=== PATIENT | female | born 1955 | race Caucasian/White ===

== ENCOUNTER → 2020-11-15 13:14 | Outpatient (CLI) | payer MEDICARE, SELFPAY ==
[2020-11-15 19:36] LABS: Add Manual Diff / Slide Review NO; Basophils Absolute Auto 100 /uL (0-100); Basophils Percent Auto 1.1 % (0-2); Eosinophils Absolute Auto 0 /uL (0-450); Eosinophils Percent Auto 0.6 % (2-4); Hematocrit 36.5 % (36-46); Hemoglobin 12.5 g/dL (12.0-16.0); Lymphocytes Absolute Auto 1700 /uL (1100-4500); Lymphocytes Percent Auto 23.7 % (25-40); Mean Corpuscular HGB Conc 34.2 % (30-36); Mean Corpuscular Hemoglobin 32.3 PG (26-34); Mean Corpuscular Volume 94.4 fL (80-100); Monocytes Absolute Auto 500 /uL (0-900); Monocytes Percent Auto 6.6 % (3-14); Neutrophils Absolute Auto 5000 /uL (1500-7000); Platelet Count 296 X10^3/uL (150-400); Red Blood Cell Count 3.87 X10^6/uL (4.0-5.2); Red Cell Distribution Width 12.5 % (11.6-14.8); White Blood Cell Count 7.3 X10^3/uL (4.5-11.0)
[2020-11-15 19:43] LABS: Alanine Aminotransferase 23 IU/L (<35); Albumin Globulin Ratio 1.2 (1.0-2.8); Alkaline Phosphatase 60 U/L (38-126); Aspartate Aminotransferase 44 IU/L (14-36); BUN Creatinine Ratio 14.7 (6-22); Bilirubin Total 0.2 mg/dL (0.2-1.3); Blood Urea Nitrogen 10 mg/dL (7-17); Calcium 9.9 mg/dL (8.4-10.2); Carbon Dioxide 33 mmol/L (22-32); Chloride 105 mmol/L (98-107); Cholesterol 164 mg/dL (140-199); Estimated Glomerular Filt Rate > 60.0 mL/min (>60); Globulin 3.3 g/dL (1.7-4.1); Glucose 82 mg/dL (80-110); HDL Cholesterol 60 mg/dL (40-60); HEMOLYSIS < 15 (0-50); LDL Cholesterol Calculated 91 mg/dL (<100); Potassium 4.8 mmol/L (3.4-5.1); Sodium 140 mmol/L (137-145); Total Protein 7.3 g/dL (6.3-8.2); Triglycerides 63 mg/dL (35-150)
[2020-11-19 11:21] LABS: HCV log 10 6.887 (.)
== END ==
PROVIDERS: PCP Family Medicine; Visit Provider Family Medicine
DX: B19.20 Unspecified viral hepatitis C without hepatic coma (principal); N90.89 Other specified noninflammatory disorders of vulva and perineum; E78.5 Hyperlipidemia, unspecified; Z86.79 Personal history of other diseases of the circulatory system
CPT/HCPCS: 80053; 80061; 85025; 87522

== ENCOUNTER → 2020-11-28 10:58 | Outpatient (CLI) | payer MEDICARE, SELFPAY ==
--- NOTE | 2020-11-28 | DI.MRI.S_ITS ---
PROCEDURE: MR LUMBAR SPINE WO CON INDICATIONS: Spinal stenosis, lumbar region with neurogenic cla TECHNIQUE: Noncontrast sagittal T1 spin echo and T2 fast echo, sagittal STIR, axial T1 and T2 fast spin echo through the lumbar spine. In cases with scoliosis, additional coronal T2 fast spin echo may be performed. COMPARISON: None. FINDINGS: Image quality: Excellent. Alignment and Curvature: No plain films are available for comparison, for numbering purposes. Thus, for the purposes of this examination, 5 lumbar type vertebral bodies will be presumed, as denoted on the montage panel. This should be confirmed and correlated with plain films, prior to any lumbar spinal intervention. There is mild, grade 1 retrolisthesis of T12 on L1, L1 on L2, L2 on L3, and L3 on L4. Bone Marrow: Marrow is of normal overall signal. No acute vertebral body compression fractures. Mild reactive signal within the endplates adjacent to the T12-L1, L1-L2, L2-L3, L3-L4, and L4-L5 intervertebral discs. Spinal Cord: Conus medullaris terminates at the mid L2 level. Visualized cord demonstrates normal signal and size. Paraspinous Soft Tissues: No paravertebral masses. T12-L1: Moderate disc height loss and desiccation. Mild diffuse disc bulge with superimposed small central disc extrusion which extends superiorly within the anterior epidural space. Mild facet and ligamentum flavum hypertrophy. Mild epidural lipomatosis. Mild canal stenosis. Mild bilateral foraminal stenosis. L1-L2: Moderate disc height loss and desiccation. Mild diffuse disc bulge. Mild facet and ligamentum flavum hypertrophy. Mild epidural lipomatosis. Mild canal stenosis. Moderate left greater than right subarticular foraminal stenosis. L2-L3: Moderate disc height loss and desiccation. Mild diffuse disc bulge. Mild facet and ligamentum flavum hypertrophy. Mild epidural lipomatosis. Mild canal stenosis. Moderate subarticular foraminal stenosis bilaterally. L3-L4: Mild disc height loss. Moderate disc desiccation. Mild diffuse disc bulge. Mild facet and ligamentum flavum hypertrophy. Mild epidural lipomatosis. Mild canal stenosis. Moderate subarticular foraminal stenosis bilaterally. L4-L5: Moderate disc height loss and desiccation. Mild diffuse disc bulge with small superimposed broad-based right posterolateral protrusion. Mild facet and ligamentum flavum hypertrophy. Mild epidural lipomatosis. Mild canal stenosis. Severe right and moderate left foraminal stenosis. Right L4 nerve root compression. L5-S1: Mild diffuse disc bulge. Mild facet hypertrophy bilaterally. No significant canal stenosis. Moderate left greater than right subarticular foraminal stenosis. IMPRESSION: 1. Multilevel degenerative disc and facet disease, as well as ligamentum flavum hypertrophy and epidural lipomatosis. 2. Mild multilevel canal stenosis. 3. Multilevel foraminal stenoses, worst at L4-L5 where there is associated intraforaminal nerve root compression. Recommend correlation with clinical symptoms to ascertain relevance of this finding. Dictated by: Rachel Canseco M.D. on 11/28/2020 at 14:24 Approved by: Rachel Canseco M.D. on 11/28/2020 at 14:28
== END ==
LOC: MRI 10:59
PROVIDERS: PCP Family Medicine; Referring Provider Family Medicine; Visit Provider Family Medicine
DX: M48.062 Spinal stenosis, lumbar region with neurogenic claudication (principal); M48.07 Spinal stenosis, lumbosacral region; M51.36 Other intervertebral disc degeneration, lumbar region; M51.37 Other intervertebral disc degeneration, lumbosacral region
CPT/HCPCS: 72148

== ENCOUNTER → 2021-09-18 11:19 | Outpatient (CLI) | payer MEDICARE, SELFPAY ==
[2021-09-18 20:08] LABS: Add Manual Diff / Slide Review NO; Basophils Absolute Auto 100 /uL (0-100); Basophils Percent Auto 0.9 % (0-2); Eosinophils Absolute Auto 100 /uL (0-450); Eosinophils Percent Auto 0.8 % (2-4); Hematocrit 36.9 % (36-46); Hemoglobin 12.4 g/dL (12.0-16.0); Lymphocytes Absolute Auto 1800 /uL (1100-4500); Lymphocytes Percent Auto 19.5 % (25-40); Mean Corpuscular HGB Conc 33.6 % (30-36); Mean Corpuscular Hemoglobin 30.5 PG (26-34); Mean Corpuscular Volume 90.7 fL (80-100); Monocytes Absolute Auto 800 /uL (0-900); Monocytes Percent Auto 8.5 % (3-14); Neutrophils Absolute Auto 6400 /uL (1500-7000); Neutrophils Percent Auto 70.3 % (50-75); Platelet Count 298 X10^3/uL (150-400); Red Blood Cell Count 4.07 X10^6/uL (4.0-5.2); Red Cell Distribution Width 13.1 % (11.6-14.8); White Blood Cell Count 9.1 X10^3/uL (4.5-11.0)
[2021-09-18 20:13] LABS: HEMOLYSIS < 15 (0-50); Iron 154 ug/dL (37-170)
[2021-09-18 20:25] LABS: Percent Iron Saturation 49 % (15-50); Total Iron Binding Capacity 317 ug/dL (265-497); Transferrin 260 mg/dL (206-381)
[2021-09-18 20:29] LABS: Alanine Aminotransferase 11 IU/L (<35); Albumin 4.4 g/dL (3.5-5.0); Albumin Globulin Ratio 1.3 (1.0-2.8); Alkaline Phosphatase 64 U/L (38-126); Aspartate Aminotransferase 26 IU/L (14-36); BUN Creatinine Ratio 16.1 (6-22); Bilirubin Total 0.8 mg/dL (0.2-1.3); Blood Urea Nitrogen 10 mg/dL (7-17); Calcium 9.7 mg/dL (8.4-10.2); Carbon Dioxide 29 mmol/L (22-32); Chloride 104 mmol/L (98-107); Estimated Glomerular Filt Rate > 60.0 mL/min (>60); Globulin 3.3 g/dL (1.7-4.1); Glucose 85 mg/dL (80-110); HEMOLYSIS < 15 (0-50); Sodium 138 mmol/L (137-145); Total Protein 7.7 g/dL (6.3-8.2)
[2021-09-18 20:57] LABS: Ferritin 46 ng/mL (11-264)
== END ==
PROVIDERS: Physician Assistant
DX: R11.0 Nausea (principal); Z86.2 Personal history of diseases of the blood and blood-forming organs and certain disorders involving the immune mechanism; B18.2 Chronic viral hepatitis C
CPT/HCPCS: 80053; 82728; 83540; 83550; 85025

== ENCOUNTER → 2021-11-21 10:59 | Outpatient (CLI) | payer MEDICARE, MEDICAID, SELFPAY ==
[2021-11-21 18:31] LABS: Add Manual Diff / Slide Review NO; Basophils Absolute Auto 100 /uL (0-100); Eosinophils Absolute Auto 100 /uL (0-450); Eosinophils Percent Auto 0.9 % (2-4); Hematocrit 37.6 % (36-46); Lymphocytes Absolute Auto 1600 /uL (1100-4500); Lymphocytes Percent Auto 20.1 % (25-40); Mean Corpuscular HGB Conc 34.5 % (30-36); Mean Corpuscular Hemoglobin 31.9 PG (26-34); Mean Corpuscular Volume 92.2 fL (80-100); Monocytes Absolute Auto 600 /uL (0-900); Monocytes Percent Auto 7.8 % (3-14); Neutrophils Absolute Auto 5400 /uL (1500-7000); Neutrophils Percent Auto 70.2 % (50-75); Platelet Count 330 X10^3/uL (150-400); Red Blood Cell Count 4.07 X10^6/uL (4.0-5.2); Red Cell Distribution Width 13.6 % (11.6-14.8); White Blood Cell Count 7.7 X10^3/uL (4.5-11.0)
[2021-11-21 18:38] LABS: Albumin 4.2 g/dL (3.5-5.0); Albumin Globulin Ratio 1.4 (1.0-2.8); Alkaline Phosphatase 68 U/L (38-126); Aspartate Aminotransferase 29 IU/L (14-36); BUN Creatinine Ratio 18.3 (6-22); Bilirubin Total 0.3 mg/dL (0.2-1.3); Blood Urea Nitrogen 11 mg/dL (7-17); Calcium 9.3 mg/dL (8.4-10.2); Carbon Dioxide 32 mmol/L (22-32); Chloride 104 mmol/L (98-107); Estimated Glomerular Filt Rate > 60 mL/min (>60); Globulin 2.9 g/dL (1.7-4.1); Glucose 106 mg/dL (80-110); HEMOLYSIS < 15 (0-50); Potassium 3.8 mmol/L (3.4-5.1); Sodium 141 mmol/L (137-145); Total Protein 7.1 g/dL (6.3-8.2)
[2021-11-21 18:53] LABS: Alanine Aminotransferase 20 IU/L (<35)
== END ==
PROVIDERS: PCP Family Medicine; Visit Provider Family Medicine
DX: N90.89 Other specified noninflammatory disorders of vulva and perineum (principal)
CPT/HCPCS: 80053; 85025

== ENCOUNTER → 2021-12-26 12:06 | Outpatient (CLI) | payer MEDICARE, MEDICAID, SELFPAY ==
[2021-12-30 11:26] LABS: Hep C Virus Ab w/Reflex Quant NEGATIVE s/c (NEGATIVE)
== END ==
PROVIDERS: PCP Family Medicine; Visit Provider Family Medicine
DX: Z11.59 Encounter for screening for other viral diseases (principal); B18.2 Chronic viral hepatitis C
CPT/HCPCS: 86803; 87522

== ENCOUNTER 2022-05-11 10:01 | Inpatient (IN) | payer MEDICARE, MEDICAID, SELFPAY ==
[2022-05-05 12:55] VITALS: BMI 19.3
[2022-05-11] VITALS (14 sets, daily range): BP systolic 96–149; BP diastolic 53–88; PULSE 58–77; RESP 9–19; TEMP 36.4–37.8; O2SAT 92–100; BMI 19.3
[2022-05-11 12:41] LABS: COVID19 -Nasal RAPID Negative (Negative)
--- NOTE | 2022-05-11 12:41 | PM.PREOP ---
Pre-operative Note COVID-19 COVID-19 status: Negative Result date/Date tested (Pos, Neg/Pending): 05/10/22 Criteria for continued procedure: Expected advancement of disease process, Possibility delay results in more complex future surgery or treatment, Increased loss of function, Continuing or worsening of significant or severe pain, Deterioration of the patient's condition or overall health and Delay expected to result in less-positive ultimate med/surg outcome Interval Note History & Physical reviewed/Exam performed by Physician: Yes Changes to H&P: No
[2022-05-11] MEDS: LACTATED RINGERS 1,000 ML 42 ML IV (12:47)
[2022-05-11] MEDS: CEFAZOLIN 2 GM/100 ML PREMIX 100 ML IV ×2 (13:46→21:30)
[2022-05-11] MEDS: BUPIVACAINE LIPOSOME 266 MG/20 ML VIAL INJ (13:49)
[2022-05-11] MEDS: BUPIVACAINE 0.5% (PF) 30 ML, EPINEPHrine 0.15 MG INJ (13:57)
--- NOTE | 2022-05-11 14:00 | SUR.OPER ---
Prone on spine table, head in foam head support, padded chest and pelvic supports, gel pad at knees, lower legs supported by pillows; nipples, genitalia and toes free of pressure, arms secured on foam padded arm boards at <90 degrees abduction. Tape over blanket at thigh secured to table.
[2022-05-11] MEDS: ACETAMINOPHEN IV 1,000 MG/100 ML VIAL 400 MG IV (14:32)
--- NOTE | 2022-05-11 15:34 | PM.OP.1 ---
Operative Date/Time/Diagnoses Date of procedure: 05/11/22 Time of procedure: 13:00 Pre-op diagnosis: 1. L4-5 spondylolisthesis 2. L4-5 spinal stenosis Post-op diagnosis: same Procedure & Clinicians Procedure: 1. L4-5 Postero-lateral and posterior interbody fusion 2. L4-5 interbody cage placement. 3. L4-5 decompressive laminectomy with bilateral facetecomies 4. L4-5 Posterior non-segmental instrumentation 5. [place] of bone marrow from iliac crest 6. Utilization of microsurgical technique and operating microscope Same procedure as scheduled: Yes Indications: Patient has been having chronic back pain and worsening lumbar radiculopathy. Patient failed multiple conservative management with worsening pain weakness and numbness in her lower extremity. Patient has been having difficulty performing activity of daily living. After discussing risks benefits of treatment options, patient elected proceed with surgery. Surgeon: Chris Marcos Traffic Court Referee: Monica Sexton Click Yes if Unassisted: No Anesthesia Type: General Operative Notes Closure Type: primary Specimen(s): none sent Prosthetic devices, grafts, tissues, transplants, or devices: Globus revolve screws, Rise cage Estimated Blood Loss (mL): 50 Blood products transfused: none Procedure in detail: Patient was seen in the preoperative area. Risks and benefits of the surgery was discussed with the patient. Informed consent was obtained from the patient and placed in the chart. Surgical site was marked. Patient was taken to the operative room. General anesthesia was administered. Prophylactic antibiotic was given to the patient less than 30 min before the incision was made. Patient was placed into a prone position on the Sukhjinder table. Patient's back was then prepped and draped in the sterile fashion. Time-out was performed at this time. Using AP and lateral C-arm imaging the interval between L4-5 was identified and marked on patient's back. A 2 inch incision 2 in from midline was made on the right side first. The fascia was incised in line with skin incision. Globus MARS retractors was placed inside the incision and docked onto the L4 lamina. Using microsurgical technique and operating microscope, a L4 laminectomy and L4-5 facetectomy was performed using a Kerrison rongeur. The disc space at L4-5 was identified. And a total diskectomy was performed at L4-5 level. The endplates were decorticated using a rasp and shaver. The total diskectomy and decortication was performed at L4-5 level in order to to accomplish a L4-5 fusion. The local bone from the laminectomy and facetectomy was saved for local bone grafting. After the total diskectomy and decortication was completed, Trifecta bone graft material was combined with local bone that was harvested earlier. At this time, a separate skin is incision was made over the iliac crest. A Jamshidi needle was inserted into the iliac crest through a separate skin incision. 5 cc of bone marrow aspiration was obtained through the separate skin incision using a Jamshidi needle from the iliac crest. The bone marrow aspiration was combined with local bone and the Trifecta bone grafting material. The bone grafting material was placed into the L4-5 interbody space along with a expandable cage. The cage was expanded to its maximum height using the torque limiting screwdriver. At this time a mirror image incision was made on the left side. The fascia was incised in line with the skin incision. Globus MARS retractor was inserted and docked onto the L4-5 posterolateral gutter. Using the power drill, posterior-lateral decortication was performed at L4-5 level until bleeding cortical bone was identified. The remaining bone grafting material was placed into the L4-5 posterior lateral gutter he order to accomplish posterolateral fusion at the L4-5 level. Using the double C-arm technique, pedicle screws were placed into the L4-5 pedicles bilaterally. This was done by placing the Jamshidi needle into the pedicles, then placing the guidewires over the Jamshidi needle, and finally placing the cannulated screws over the guidewires bilaterally. After the pedicle screws were placed, 2 titanium rods was locked into the heads of the pedicle screws using locking caps and torque limiting screwdriver. After all the hardware was placed, and confirmed with AP and lateral C-arm imaging, the wound was then irrigated with sterile normal saline and packed with Ray-Minnie gauze for 3 min to accomplish hemostasis. After the gauze was removed the deep fascia was closed with #1 Vicryl suture. The subcutaneous layer was closed with 2-0 Vicryl. The skin was closed with skin malka. Patient tolerated the procedure well. There were no complications. Complications: none Post-operative Condition: stable Disposition: PACU Plan for aftercare: Admit to inpatient hospital
--- NOTE | 2022-05-11 15:37 | DI.RAD.S_ITS ---
PROCEDURE: XR LUMBAR SPINE 2-3V INDICATIONS: L4-5 TLIF TECHNIQUE: 3 views of the lumbar spine were acquired. COMPARISON: None. FINDINGS: Bones: AP and lateral views demonstrate pedicular screw and abundio fixation with interval discectomy and interbody fusion. IMPRESSION: Fluoroscopic views demonstrate intraoperative changes of L4-5 discectomy and fusion. Dictated by: Julien Chen M.D. on 05/11/2022 at 16:36 Approved by: Julien Chen M.D. on 05/11/2022 at 16:37
[2022-05-11] MEDS: fentaNYL 100 MCG/2 ML INJ IV ×2 (15:51→16:08)
[2022-05-11] MEDS: OXYCODONE IR 5 MG TABLET PO (16:11)
[2022-05-11] MEDS: HYDROMORPHONE 0.5 MG INJ IV ×2 (17:09→23:43)
[2022-05-11] MEDS: SODIUM CHLORIDE 0.9% 1,000 ML 100 ML IV (17:44)
[2022-05-11] MEDS: SENNOSIDES 8.6 MG TABLET 17.2 MG PO (20:03)
[2022-05-11] MEDS: OXYCODONE IR 10 MG TABLET PO ×2 (20:03→23:01)
[2022-05-11] MEDS: hydrOXYzine pamoate 25 MG CAPSULE PO (20:03)
[2022-05-11] MEDS: atenoloL 25 MG TABLET PO (20:04)
[2022-05-11] MEDS: DOCUSATE 100 MG CAPSULE PO (20:04)
[2022-05-11] MEDS: ACETAMINOPHEN 325 MG TABLET 650 MG PO (20:04)
[2022-05-12] VITALS: BP 143/68; PULSE 53; RESP 19; TEMP 37.6; O2SAT 93
[2022-05-12] MEDS: OXYCODONE IR 10 MG TABLET PO ×7 (03:20→23:41)
[2022-05-12] MEDS: hydrOXYzine pamoate 25 MG CAPSULE PO (03:20)
[2022-05-12 04:00] VITALS: BP 116/54; PULSE 52; RESP 19; TEMP 36.6; O2SAT 98
[2022-05-12] MEDS: CEFAZOLIN 2 GM/100 ML PREMIX 100 ML IV (06:11)
--- NOTE | 2022-05-12 07:42 | PM.PNPO.1 ---
Subjective Subjective Date Patient Seen: 05/12/22 Time Patient Seen: 07:42 Interval history: Patient is complaining of stla-mw-murhhmms low back pain this morning. She denies any numbness or tingling down her legs. She states she is not had a bowel movement yet and nor is she passing gas yet. She is not worked with physical therapy. Her plan on discharge is going to SNF. Exam Vital Signs (past 8 hours): - 05/12/22 00:00 05/12/22 04:00 Temperature 99.6 F 97.8 F Pulse Rate 53 L 52 L Respiratory Rate 19 19 Blood Pressure 143/68 H 116/54 L Pulse Oximetry 93 98 Oxygen Delivery Method Nasal Cannula Oxygen Flow Rate 0 Narrative Exam Narrative: Pleasant 66-year-old female, resting comfortably in bed, no acute distress. Dressing is clean, dry, intact. There is no surrounding erythema, induration, ecchymosis. Bilateral lower extremity: Motor functions are grossly intact, sensation is grossly intact to light touch, calves are soft and nontender to palpation. Objective Labs Labs: Laboratory Results - last 24 hr 05/11/22 12:08 SARS-CoV-2 (PCR) Negative [facility] Medical History Abnormal Pap smear of cervix Allergies Ankle pain Anxiety Chronic back pain Chronic low back pain Diverticular disease Fever (~1974) Fibromyalgia Foot pain Headache Hepatitis C History of atrial fibrillation (~2018) History of syphilis (~1975) History of urinary incontinence Hx of ectopic Hyperlipidemia Hypertension Measles (~1957) Neck pain Raynaud's phenomenon Recurrent sinusitis Rheumatoid arthritis Right foot drop Shoulder pain Spinal stenosis Wears glasses Surgical History Anesthesia History of cervical cerclage History of colonoscopy with polypectomy History of surgery (~2019) Hx of section Hx of tubal ligation Family History Mother History of heart disease Social History household members: none Smoking Status: Current every day smoker alcohol intake: current Assessment & Plan Post-op Postoperative Procedures: Procedures Operation Date: 05/11/22 13:45 Actual Procedure Side Surgeon p L4-5 TLIF Chris Marcos MD Postoperative day: 1 Postoperative status narrative: -stable status post L4-5 TLIF Postoperative plan narrative: -mobilize with PT/OT. No bending, lifting, twisting x6 weeks. Weightbearing as tolerated with front wheel walker or cane -continue with multimodal pain management -DC to SNF once a bed is available Quality VTE Deep Vein Thrombosis/Pulmonary Embolism Present on Admission: No
[2022-05-12 07:49] VITALS: BP 120/53; PULSE 56; RESP 17; TEMP 36.8; O2SAT 99
--- NOTE | 2022-05-12 08:43 | CM.DANOTE ---
Addendum entered by Cornelia Truong R.N. 05/12/22 13:26: Selene called back from [facility] and they are running insurance authorization. [facility]. DCP to continue to follow. ADJ Addendum entered by Cornelia Truong R.N. 05/12/22 12:38: PT is recommending SNF. [facility]erral [facility] as pt wants to stay in [place]. Discussion was had with pt that if [facility] unable to accept, would have to start looking elsewhere. Pt in agreement. DCP to continue to follow. Cornelia Truong RN/STANLEY Original Note: DCP Assessment: Payor confirmed: [facility] MCR & Medicaid PCP confirmed: Edgar Ruiz MD Pt is a 66 y.o. F who presented to the hospital for a scheduled TLIF surgery with Dr. Marcos. Pt brought up to AC unit for further management and evaluation of procedure. DCP met with pt this morning to discuss discharge needs. Pt sitting up in bed eating breakfast. DCP introduced herself and role. Pt states that she lives alone in a single story house in [place]. Pt states that she is independent at baseline and still drives POV. Pt states that she has a medicare biller through her insurance who is assisting her with getting set up with rehab. DCP to contact this medicare biller. Pt also states that she has a son who lives nearby and will be here later this morning to visit with her. Pt provided DCP with contact information for medicare biller. Pt still needs to work with PT for evaluation. White board updated and instructed to call. Pt thankful for discussion. P: DCP left message for medicare biller. Pt to work with PT today. DCP to follow case to determine if patient is SNF eligible. Cornelia Truong RN/STANLEY Discharge Planning/Care Management CM Discharge Assessment Start: 05/12/22 08:24 Freq: Status: Active Protocol: Document 05/12/22 08:39 ROCIO (Rec: 05/12/22 08:43 ROCIO [id number]) Discharge Planning Assessment Assigned Yoke Setter Corneila Truong RN/STANLEY Advance Directives? No History Provided By Patient Prior Living Arrangements House Household Members none Type of transporation used prior to Drives own vehicle admit Independent with ADL's Yes Is patient alert and oriented? Yes Caregiver for Another No Patient/Family Preference [facility] Facility Discharge Plan Home Transportation Arrangement Son MARYANNE. R/O SNF Referrals Initiated [facility] Additional Comment Maybe SNF. Per pt, her insurance medicare biller is setting up rehab services for her. Whiteboard Updated in Patient Room with Yes name and ext. # of Yoke Setter Comment Instructed to call Review Status In Process Please Provide Date Initial DC 05/12/22 Assessment Was Performed Next Review Type Continued Stay Review Pre-Anesthesia Assessment Start: 05/04/22 08:16 Freq: Status: Complete Protocol: Document 05/05/22 12:55 CAB (Rec: 05/04/22 09:51 CAB [id number]) Pre-Anesthesia Assessment PAC Comment Pt would like a nicotine patch Pt reports thumbnail -sized boil on her left buttocks, has been present approximately a month. Advised pt to update surgeon's office Preferred Name Jose A Patient Information Reviewed Via Phone Assessment Assessment Completed With Patient Diagnostic Results EKG Comment Outside ECG done, not here, no labs, COVID screen @ 05/11 Primary Care Provider Edgar Ruiz Seen Specialist in Last 12 Months Yes Specialist Seen Orthopedist Primary Language Tongan Bailer Operators Supervisor Required No Height 167.64 cm Weight 54.431 kg Body Mass Index (BMI) 19.3 Hearing Ability Normal Visual Assist Glasses Dentition Type Full- Upper Barriers to Learning None Hx Anesthesia Reactions Yes: Pt states some type of reaction during a surgery in her 20's but does Additional comment remeber what happened. Hx Family Anesthesia Reaction No Hx Malignant Hyperthermia No Hx Blood Transfusions Yes: r/t miscarriage Hx Blood Transfusion Reaction No Anesthesia Review Requested No Head Men'S Golf Coach Yes: Pt lives on [place], needs assistance with resources alcohol intake current alcohol intake frequency 0-2 drinks per day Smoking Status Current every day smoker Tobacco type cigarettes,e-cigarettes Smoking packs per day 10 Substance Use Type marijuana Comment Pt advised not to smoke marijuana 24 hours prior to surgery Pain Present Pain Reported Musculoskeletal Symptoms Abnormal Gait,Back Pain, Difficulty Walking,Limited Range of Motion,Muscle Weakness,Radiating Pain into Limb History of Falling (Recent or History of Yes ) Patient is completely paralyzed or No completely immobile Mental Status Oriented to own ability Is patient on oxygen? No Does patient have STEWART/SOB Yes: r/t smoking Hx Sleep Apnea No Currently Taking a Beta Treva Yes: Atenolol Can You Climb a Flight of Stairs Without No SOB Hx Chest Pain No Hx SOB Yes: Related to smoking Hx Syncope or Dizziness Yes: r/t medication Anti-Coagulant Therapy Yes: ASA 1000mg qd-bid for pain and Afib-pt will discuss w/Dr. Kaur Has a [facility] Yes: Last visit 01/29/[address] Kaur Cardiac Testing Yes: Nuc stress, Echo done @ [facility] Hx Pacemaker/ICD No Pacemaker Rep Required? No Cardiac Clearance Received Yes Comment Cardiac records scanned Diet Type At Home Regular dysphagia No Urinary Catheter Present No Hx Urinary Self Catheterization No Diabetes No Patient No Lactating No Hx Drug Resistant Organism No Presence of External or Internal Medical No Devices Have you had any close contact with No someone diagnosed with COVID-19? Received a COVID vaccine? Yes Received all doses? Yes Marital Status Lives With none Prior Living Arrangements House Number of Floors (Floors) One Floor Support System Child/Children Does the Patient Have Assistance After Yes: Son will stay w/pt Surgery initially, but she is unsure after that Patient Discharge Plan Description Return Home Comment Lives on [facility] Additional comment Pt advised 1-2 day length of stay per surgeon Feels Safe in Current Environment Yes Been Physically Hurt or Threatened By a No Person in Current Environment Do you have thoughts of harming yourself None or others? Are you currently considering suicide? No Do you have a plan to hurt yourself or No Plan others? Do You Have Any Spiritual Beliefs That No May Affect Your HC Choices? Do You Have Any Cultural Practices That No May Affect Your HC Choices? Who Can We Speak to About Patient's Care Family, friends Identifying Code for Release of Patient Declines to issue Information Health Care Proxy/Next of Kin Juan Knox (son) Health Care Proxy or his : Alesha: [phone] Emergency Contact Name Juan Knox (son) Emergency Contact or his : Alesha: [phone] Advance Directives? No Power of Material Control Analyst No PAC Instructions Durable medical equipment, Medications to take/avoid, Nasal antibiotic,No ETOH/ petroleum product on skin DOS, NPO,Pre-surgical wash,Sensory aids,Sturdy shoes/comfortable clothes,Do not bring valuables and remove jewelry
[2022-05-12] MEDS: DOCUSATE 100 MG CAPSULE PO ×2 (09:08→20:08)
--- NOTE | 2022-05-12 10:50 | OT.IP.EVAL ---
Current Diagnoses Foot drop, right foot (05/11/22) Spondylolisthesis, lumbar region (05/11/22) Spinal stenosis, lumbar region with neurogenic claudication (05/11/22) Surgery Performed Operation Date: 05/11/22 13:45 Actual Procedures p L4-5 TLIF - Chris Marcos MD Past Medical History (Last Reviewed 05/12/22 @ 07:43 by Cici Khanna PA-C) Abnormal Pap smear of cervix Allergies Ankle pain Anxiety Chronic back pain Chronic low back pain Diverticular disease Fever (~1974) Fibromyalgia Foot pain Headache Hepatitis C History of atrial fibrillation (~2018) History of syphilis (~1975) History of urinary incontinence Hx of ectopic Hyperlipidemia Hypertension Measles (~1957) Neck pain Raynaud's phenomenon Recurrent sinusitis Rheumatoid arthritis Right foot drop Shoulder pain Spinal stenosis Wears glasses Surgical History (Last Reviewed 05/12/22 @ 07:43 by Cici Khanna PA-C) Anesthesia History of cervical cerclage History of colonoscopy with polypectomy History of surgery (~2019) Hx of section Hx of tubal ligation Occupational Therapy Inpatient Evaluation/Re-Eval M1 PT/OT-IP Prior Functional Status Start: 05/12/22 12:18 Freq: NEEDED Status: Active Protocol: Document 05/12/22 11:01 AB (Rec: 05/12/22 12:35 AB [id number]) Medical Review Prior Functional Status Medical History Reviewed Yes Communication able to make needs known Mobility and Gait pt stated that she is independent with all mobilities and ambulation without AD Social History Household Members none Living Arrangements House Number of Floors (Floors) One Floor Number of Stairs To Enter/Railing? 3 platform steps to enter has an outdoor shower has an outhouse Home Environment Walk in Shower Home Equipment Front Wheel Walker,Straight Cane,Bedside Commode,Hand Held Shower,Stitcher Around Additional Social History Comment son lives close by and can check on pt daily if needed M2 OT-IP Current Condition Start: 05/12/22 11:41 Freq: Status: Active Protocol: Document 05/12/22 11:41 [facility] (Rec: 05/12/22 12:30 [facility] [id number]) Occupational Therapy Current Condition Current Condition Evaluation Date 05/12/22 Treatment Diagnosis S/p L4-5 TLIF Diagnosis Onset Date 05/11/22 Post Operative Precautions Lumbar Precautions Log Roll,No Twisting,Limit Bending,Lifting Restriction of 10 lbs,Gait Belt above Incisional Area M3 OT- IP Subjective and Pain Start: 05/12/22 11:41 Freq: Status: Active Protocol: Document 05/12/22 11:41 [facility] (Rec: 05/12/22 12:30 [facility] [id number]) OT- Subjective Occupational Therapy Visit Type Type Initial Evaluation Visit Start Time 09:05 Visit Stop Time 10:50 Total Visit Minutes 68 Notes Pt seen for split session 905 [id number] and [id number]. Pt's son present for the end of the session and caregiver training was initiated. Occupational Therapy Visit Comments Patient Comments Pt coming out of the bathroom when OT came to work with the pt a second time. Patient/Caregiver Goals Pt wanting to go to skilled rehab. OT Pain Assessment Pain When Pain Assessed During Mobility Pain Present Pain Present Pain Reported Location lower back Intensity 6 Scale Used Numeric (0 - 10) M4 OT- IP ADL's Start: 05/12/22 11:41 Freq: Status: Active Protocol: Document 05/12/22 11:41 [facility] (Rec: 05/12/22 12:30 [facility] [id number]) OT [id number] Comments OT Self-Feeding Comments Not at meal time. OT ADL-Grooming General Evaluation Grooming Ability Standby Assistance Areas Needing Assistance Retrieving/Set-up of Grooming Items OT ADL-Oral Care General Eval Oral Care Ability Standby Assistance Areas of Assistance Retrieving/Set-Up of Items Comments Oral Care Comments VC to spit into the cup versus hinge at her hips in order to best follow her back precautions. OT ADL-Dressing General Eval Lower Body Dressing Ability Standby Assistance Comments OT Dressing Comments Pt able to comfortably cross her legs in order to kiara/doff her socks. OT ADL-Toileting General Evaluation Toileting Ability Independent Comments OT Toileting Comments Per nursing aid, pt walked into the bathroom on her own and was just walking out when OT came to see her. OT ADL-Bathing Comments OT Bathing Comments Not performed. Best for pt to have assist at home due to her shower is outside and also would benefit from a shower chair and long handled brush. M5 OT- IP IADL's Start: 05/12/22 11:41 Freq: Status: Active Protocol: Document 05/12/22 11:41 [facility] (Rec: 05/12/22 12:30 [facility] [id number]) OT-Instrumental Activities of Daily Living Deficits IADL Deficits Identified Deficits Home Safety Awareness Awareness of Need for Assistance at Home Good Awareness Home Safety Comments Pt not thinking well and a bit groggy from pain medications and needing constant cues for safety. At this time would be best for pt to have 24/7 available assist but not 1:1 assist and for her son to stay with her initially. Medication Management Medication Management Comments At this time pt is a bit groggy and would benefit form at least supervision with all her needs. Money Management Money Management Comments At this time pt is a bit groggy and would benefit form at least supervision with all her needs. Meal Preparation Meal Preparation Comments At this time pt is a bit groggy and would benefit form at least supervision with all her needs. Casing Tier Casing Tier Comments At this time pt is a bit groggy and would benefit form at least supervision with all her needs. M6 OT- IP Functional Cognition Start: 05/12/22 11:41 Freq: Status: Active Protocol: Document 05/12/22 11:41 [facility] (Rec: 05/12/22 12:30 [facility] [id number]) Cognitive Factors Limiting Selfcare Function Cognitive Ability Level of Alertness Drowsy Patient Orientation Name,Place,Situation Attention Span Ability Capable of Focused Attention, Capable of Sustained Attention Ability to Follow Commands Able to Follow One Step Commands with Increased Time, Able to Follow One Step Commands with Repetition Safety Awareness Decreased Ability to Apply Precautions,Underestimates Need for Assistance Cognitive Comments Cognitive Assessment Comments Pt a bit groggy and needing constant vc for safety at this time. OT- Vision and Hearing OT- Hearing Assessment OT- Hearing Assessment WFL OT- Vision Assessment Visual Acuity Glasses All The Time M7 OT- IP Mobility and Balance Start: 05/12/22 11:41 Freq: Status: Active Protocol: Document 05/12/22 11:41 [facility] (Rec: 05/12/22 12:30 [facility] [id number]) OT- Bed Mobility Assessment Rolling Type of Rolling Roll to Left Level of Assistance Contact Guard Assistance Supine to Sit Supine to Sit Assist Standby Assistance Sit to Supine Sit to Supine Assist Contact Guard Assistance OT-Transfer Assessment Sit to and From Stand Sit to and from Stand Standby Assistance Transfers Transfer Ability Standby Assistance Technique Transfer Destination Bed,Chair,Toilet Transfer Technique Stand Step Pivot Devices Transfer Assistive Devices Gait Belt,Front Wheeled Walker ,4 Wheeled Walker Comments Mobility Comments Pt much more steady with the FWW and tried the 4ww but too unsteady at this time. Pt's son able to assist while up walking. Pt's BP supine 123/54, sitting 107/51, and standing 92/52 and pt feeling whoozy. Pt's nurse notified. OT- Balance Assessment Sitting Balance and Reactions Static Sitting Balance Ability Normal Dynamic Sitting Balance Ability Good Standing Balance and Reactions Static Standing Balance Ability Fair Dynamic Standing Balance Ability Fair M8 OT- IP Objective Assessments Start: 05/12/22 11:41 Freq: Status: Active Protocol: Document 05/12/22 11:41 [facility] (Rec: 05/12/22 12:30 [facility] [id number]) OT-Muscle Tone Assessment Muscle Tone WNL Yes M9 OT- IP Assessment and Plan Start: 05/12/22 11:41 Freq: Status: Active Protocol: Document 05/12/22 11:41 [facility] (Rec: 05/12/22 12:30 [facility] [id number]) OT Summary Assessment and Plan Potential Rehabilitation Potential Good Analytic Complexity at Evaluation Low Summary OT Impairments Pain,Balance,Functional Mobility,Dressing,Bathing, Shower Transfers Progress Towards Goals Progressing Toward Goals,Slow Progress due to Pain Assessment Summary Pt low complexity and main barriers are her dynamic balance, a bit groggy from pain medications and needing cues to follow her back precautions at this time. Pt will benefit from her son to assist her initially and home health , however may need outpt services as she lives on [facility]. Pt has already gotten a BSC for home use and would benefit from a shower chair. Pt 's son to stay with her initially. Ideally pt would benefit from a short skilled rehab as currently her home environment is not safe for her to be on her own. Pt has 60-100ft to her outhouse on uneven terrain and outdoor shower. Given a short rehab stay pt would benefit from continued practice with back precautions and become more independent. As having home health and outpt services is probably unrealistic as pt has to go by boat/ferry [place] get anywhere. Goals Grooming Goal Independent Dressing Goal Independent Toileting Goal Independent Bathing Goal Standby Assistance Toilet Transfer Goal Independent Shower Transfer Goal Contact Guard Assistance Days to Meet Goals 5 Frequency of Treatment Frequency Of Treatment Once a Day Treatment Plan OT Treatment Plan ADL Training,Functional Mobility,Patient/Family Education,Discharge Planning Other Treatment Recommendations and Next shower Treatment Focus Discharge Recommendations OT Discharge Recommendations Home with 08/02 Assist Available,Home Health, Outpatient PT vs short SNF Home Equipment Needs shower chair Transportation Needs at Discharge Private Vehicle
--- NOTE | 2022-05-12 10:50 | OT.IP.EVAL ---
Current Diagnoses Foot drop, right foot (05/11/22) Spondylolisthesis, lumbar region (05/11/22) Spinal stenosis, lumbar region with neurogenic claudication (05/11/22) Surgery Performed Operation Date: 05/11/22 13:45 Actual Procedures p L4-5 TLIF - Chris Marcos MD Past Medical History (Last Reviewed 05/12/22 @ 07:43 by Cici Khanna PA-C) Abnormal Pap smear of cervix Allergies Ankle pain Anxiety Chronic back pain Chronic low back pain Diverticular disease Fever (~1974) Fibromyalgia Foot pain Headache Hepatitis C History of atrial fibrillation (~2018) History of syphilis (~1975) History of urinary incontinence Hx of ectopic Hyperlipidemia Hypertension Measles (~1957) Neck pain Raynaud's phenomenon Recurrent sinusitis Rheumatoid arthritis Right foot drop Shoulder pain Spinal stenosis Wears glasses Surgical History (Last Reviewed 05/12/22 @ 07:43 by Cici Khanna PA-C) Anesthesia History of cervical cerclage History of colonoscopy with polypectomy History of surgery (~2019) Hx of section Hx of tubal ligation Occupational Therapy Inpatient Evaluation/Re-Eval M2 OT-IP Current Condition Start: 05/12/22 11:41 Freq: Status: Active Protocol: Document 05/12/22 11:41 [facility] (Rec: 05/12/22 12:30 [facility] [id number]) Occupational Therapy Current Condition Current Condition Evaluation Date 05/12/22 Treatment Diagnosis S/p L4-5 TLIF Diagnosis Onset Date 05/11/22 Post Operative Precautions Lumbar Precautions Log Roll,No Twisting,Limit Bending,Lifting Restriction of 10 lbs,Gait Belt above Incisional Area M3 OT- IP Subjective and Pain Start: 05/12/22 11:41 Freq: Status: Active Protocol: Document 05/12/22 11:41 [facility] (Rec: 05/12/22 12:30 [facility] [id number]) OT- Subjective Occupational Therapy Visit Type Type Initial Evaluation Visit Start Time 09:05 Visit Stop Time 10:50 Total Visit Minutes 68 Notes Pt seen for split session 905- 930 and [id number]. Pt's son present for the end of the session and caregiver training was initiated. Occupational Therapy Visit Comments Patient Comments Pt was coming out of the bathroom when OT came to work with the pt a second time. Patient/Caregiver Goals Pt wanting to go to skilled rehab. OT Pain Assessment Pain When Pain Assessed During Mobility Pain Present Pain Present Pain Reported Location lower back Intensity 6 Scale Used Numeric (0 - 10) M4 OT- IP ADL's Start: 05/12/22 11:41 Freq: Status: Active Protocol: Document 05/12/22 11:41 [facility] (Rec: 05/12/22 12:30 [facility] [id number]) OT [id number] Comments OT Self-Feeding Comments Not at meal time. OT ADL-Grooming General Evaluation Grooming Ability Standby Assistance Areas Needing Assistance Retrieving/Set-up of Grooming Items OT ADL-Oral Care General Eval Oral Care Ability Standby Assistance Areas of Assistance Retrieving/Set-Up of Items Comments Oral Care Comments VC to spit into the cup versus hinge at her hips in order to best follow her back precautions. OT ADL-Dressing General Eval Lower Body Dressing Ability Standby Assistance Comments OT Dressing Comments Pt able to comfortably cross her legs in order to kiara/doff her socks. OT ADL-Toileting General Evaluation Toileting Ability Independent Comments OT Toileting Comments Per nursing aid, pt walked into the bathroom on her own and was just walking out when OT came to see her. OT ADL-Bathing Comments OT Bathing Comments Not performed. Best for pt to have assist at home due to her shower is outside and also would benefit from a shower chair and long handled brush. M5 OT- IP IADL's Start: 05/12/22 11:41 Freq: Status: Active Protocol: Document 05/12/22 11:41 [facility] (Rec: 05/12/22 12:30 [facility] [id number]) OT-Instrumental Activities of Daily Living Deficits IADL Deficits Identified Deficits Home Safety Awareness Awareness of Need for Assistance at Home Good Awareness Home Safety Comments Pt not thinking well and a bit groggy from pain medications and needing constant cues for safety. At this time would be best for pt to have 24/7 available assist but not 1:1 assist and for her son to stay with her initially. Medication Management Medication Management Comments At this time pt is a bit groggy and would benefit from at least supervision with all her needs. Money Management Money Management Comments At this time pt is a bit groggy and would benefit from at least supervision with all her needs. Meal Preparation Meal Preparation Comments At this time pt is a bit groggy and would benefit form at least supervision with all her needs. Associate Director Of Biostatistics Associate Director Of Biostatistics Comments At this time pt is a bit groggy and would benefit form at least supervision with all her needs. M6 OT- IP Functional Cognition Start: 05/12/22 11:41 Freq: Status: Active Protocol: Document 05/12/22 11:41 [facility] (Rec: 05/12/22 12:30 [facility] [id number]) Cognitive Factors Limiting Selfcare Function Cognitive Ability Level of Alertness Drowsy Patient Orientation Name,Place,Situation Attention Span Ability Capable of Focused Attention, Capable of Sustained Attention Ability to Follow Commands Able to Follow One Step Commands with Increased Time, Able to Follow One Step Commands with Repetition Safety Awareness Decreased Ability to Apply Precautions,Underestimates Need for Assistance Cognitive Comments Cognitive Assessment Comments Pt a bit groggy and needing constant vc for safety at this time. OT- Vision and Hearing OT- Hearing Assessment OT- Hearing Assessment WFL OT- Vision Assessment Visual Acuity Glasses All The Time M7 OT- IP Mobility and Balance Start: 05/12/22 11:41 Freq: Status: Active Protocol: Document 05/12/22 11:41 [facility] (Rec: 05/12/22 12:30 [facility] [id number]) OT- Bed Mobility Assessment Rolling Type of Rolling Roll to Left Level of Assistance Contact Guard Assistance Supine to Sit Supine to Sit Assist Standby Assistance Sit to Supine Sit to Supine Assist Contact Guard Assistance OT-Transfer Assessment Sit to and From Stand Sit to and from Stand Standby Assistance Transfers Transfer Ability Standby Assistance Technique Transfer Destination Bed,Chair,Toilet Transfer Technique Stand Step Pivot Devices Transfer Assistive Devices Gait Belt,Front Wheeled Walker ,4 Wheeled Walker Comments Mobility Comments Pt much more steady with the FWW and tried the 4ww but too unsteady at this time. Pt's son able to assist while up walking with the FWW. Pt's BP supine 123/54, sitting 107/51, and standing 92/52 and pt feeling whoozy. Pt's nurse notified. Educated pt to ease herself down with use of the hands on the armrest. OT- Balance Assessment Sitting Balance and Reactions Static Sitting Balance Ability Normal Dynamic Sitting Balance Ability Good Standing Balance and Reactions Static Standing Balance Ability Fair Dynamic Standing Balance Ability Fair M8 OT- IP Objective Assessments Start: 05/12/22 11:41 Freq: Status: Active Protocol: Document 05/12/22 11:41 [facility] (Rec: 05/12/22 12:30 [facility] [id number]) OT-Muscle Tone Assessment Muscle Tone WNL Yes M9 OT- IP Assessment and Plan Start: 05/12/22 11:41 Freq: Status: Active Protocol: Document 05/12/22 11:41 [facility] (Rec: 05/12/22 12:30 [facility] [id number]) OT Summary Assessment and Plan Potential Rehabilitation Potential Good Analytic Complexity at Evaluation Low Summary OT Impairments Pain,Balance,Functional Mobility,Dressing,Bathing, Shower Transfers Progress Towards Goals Progressing Toward Goals,Slow Progress due to Pain Assessment Summary Pt low complexity and main barriers are her dynamic balance, a bit groggy from pain medications and needing cues to follow her back precautions at this time. Pt will benefit from her son to assist her initially and home health , however may need outpt services as she lives on [facility] [address]. Pt has already gotten a BSC for home use and would benefit from a shower chair. Pt 's son to stay with her initially. Goals Grooming Goal Independent Dressing Goal Independent Toileting Goal Independent Bathing Goal Standby Assistance Toilet Transfer Goal Independent Shower Transfer Goal Contact Guard Assistance Days to Meet Goals 5 Frequency of Treatment Frequency Of Treatment Once a Day Treatment Plan OT Treatment Plan ADL Training,Functional Mobility,Patient/Family Education,Discharge Planning Other Treatment Recommendations and Next shower Treatment Focus Discharge Recommendations OT Discharge Recommendations Home with 08/02 Assist Available,Home Health, Outpatient PT Home Equipment Needs shower chair Transportation Needs at Discharge Private Vehicle
--- NOTE | 2022-05-12 11:01 | PT.IIE ---
Current Diagnoses Foot drop, right foot (05/11/22) Spondylolisthesis, lumbar region (05/11/22) Spinal stenosis, lumbar region with neurogenic claudication (05/11/22) Surgery Performed Operation Date: 05/11/22 13:45 Actual Procedures p L4-5 TLIF - Chris Marcos MD Surgical History (Last Reviewed 05/12/22 @ 07:43 by Cici Khanna PA-C) Anesthesia History of cervical cerclage History of colonoscopy with polypectomy History of surgery (~2019) Hx of section Hx of tubal ligation Medical History (Last Reviewed 05/12/22 @ 07:43 by Cici Khanna PA-C) Abnormal Pap smear of cervix Allergies Ankle pain Anxiety Chronic back pain Chronic low back pain Diverticular disease Fever (~1974) Fibromyalgia Foot pain Headache Hepatitis C History of atrial fibrillation (~2018) History of syphilis (~1975) History of urinary incontinence Hx of ectopic Hyperlipidemia Hypertension Measles (~1957) Neck pain Raynaud's phenomenon Recurrent sinusitis Rheumatoid arthritis Right foot drop Shoulder pain Spinal stenosis Wears glasses Physical Therapy Inpatient Evaluation/Re-Eval M1 PT/OT-IP Prior Functional Status Start: 05/12/22 12:18 Freq: NEEDED Status: Active Protocol: Document 05/12/22 11:01 AB (Rec: 05/12/22 12:35 AB [email or web address]) Medical Review Prior Functional Status Medical History Reviewed Yes Communication able to make needs known Mobility and Gait pt stated that she is independent with all mobilities and ambulation without AD Social History Household Members none Living Arrangements House Number of Floors (Floors) One Floor Number of Stairs To Enter/Railing? 3 platform steps to enter has an outdoor shower has an outhouse Home Environment Walk in Shower Home Equipment Front Wheel Walker,Straight Cane,Bedside Commode,Hand Held Shower,Food General Manager Additional Social History Comment son lives close by and can check on pt daily if needed M2 PT-IP Current Condition Start: 05/12/22 12:18 Freq: NEEDED Status: Active Protocol: Document 05/12/22 11:01 AB (Rec: 05/12/22 12:35 AB [email or web address]) Physical Therapy Current Condition Current Condition Evaluation Date 05/12/22 Treatment Diagnosis s/p L4-5 TLIF; difficulty in walking Onset Date 05/11/22 M3 PT-IP Subjective Start: 05/12/22 12:18 Freq: NEEDED Status: Active Protocol: Document 05/12/22 11:01 AB (Rec: 05/12/22 12:35 AB [email or web address]) Subjective Physical Therapy Visit Type Type Initial Evaluation Visit Start Time 11:01 Visit Stop Time 11:40 Total Visit Minutes 39 Number of MALE MODEL Visits 0 Physical Therapy Visit Comments Patient Comments agreeable to do PT Therapy Pain Assessment Pain When Pain Assessed During Mobility Pain Present Pain Present Pain Reported Location lower back Intensity 8 Scale Used Numeric (0 - 10) Pain Behaviors Facial Grimacing,Guarding, Wincing Pain Management Techniques Apply Cold,Distraction, Modification of Treatment,Re- positioning,Timing of Activity with Medications M4 PT-IP Mobility and Gait Start: 05/12/22 12:18 Freq: NEEDED Status: Active Protocol: Document 05/12/22 11:01 AB (Rec: 05/12/22 12:35 [id number]) PT-Bed Mobility Assessment Rolling Type of Rolling Log Rolling Level of Assist Standby Assistance Supine to Sit Supine to Sit Standby Assistance Sit to Supine Sit to Supine Standby Assistance PT-Transfer Assessment Sit to and From Stand Sit to and from Stand Minimal Assistance,Moderate Assistance,1 Person Assistance ,Use of Upper Extremities Equipment Transfer Assistive Device Gait Belt,Front Wheeled Walker Orthotic/Prosthetic Devices or Brace: No Transfers Transfer Destination Bed,Chair Transfer Technique ambulated Transfer Ability Level of Assist Minimal Assistance,1 Person Assistance,Use of Upper Extremities Comments Mobility Comments reviewed back precautions with pt and pt able to recall. completed sit to stand from the chair mod A and max cues. c/o 8/10 LBP with mobility. presents with heavy UE use to stand. educated pt on sit to stand techniques and repeated x 3 and completed min to mod A and cues. pt ambulated in room ~ 30 ft using FWW min A and cues. presents with antalgic gait with decrease LE elevation. pt ambulated to EOB. completed sit <>supine SBA and cues. completed sit to stand min to mod A and step transfer to chair using FWW min A and cues. positioned pt on the chair. Call light and table placed within reach. Gait Assessment Gait Gait Assistance Required: Minimum Assistance,1 Person Assist Distance (Feet) 30 Able to Maintain Weight Bearing Status Yes During Gait Assistive Devices Assistive Device Gait Belt,Front Wheeled Walker Orthotic/Prosthetic Devices or Brace: No Gait Deviations General Gait Pattern Antalgic,Decreased Stride Length,Decreased Feet Clearance,Step-to Gait Factors Limiting Gait Function Factors Limiting Gait Function Decreased Activity Tolerance, Decreased Strength,Limited Range of Motion,Pain,Poor Balance,Poor Safety Awareness PT-Balance Assessment Sitting Balance and Reactions Static Sitting Balance Ability Normal Dynamic Sitting Balance Ability Good Standing Balance and Reactions Static Standing Balance Ability Fair Dynamic Standing Balance Ability Fair Device Used FWW M5 PT-IP Objective Assessments Start: 05/12/22 12:18 Freq: NEEDED Status: Active Protocol: Document 05/12/22 11:01 AB (Rec: 05/12/22 12:35 AB [email or web address]) Orientation Orientation/Cognition Level of Alertness Alert Orientation Name,Place,Situation Language Function Ability No Deficits Noted Safety Awareness Decreased Safety Awareness Memory Description No Deficits Noted Gross Range of Motion Lower Extremity ROM Assessment Within Functional Limits Strength Lower Extremity Strength Hip 3+/5 Knee 4-/5 Coordination Assessment Gross Coordination Gross Coordination WNL Sensation Assessment Sensation Gross Sensation Left LE Impaired Sensation Description Numbness Comments Sensation Comments LLE numbness after ambulation Muscle Tone Muscle Tone WNL Yes M6 PT-IP Treatment Start: 05/12/22 12:18 Freq: NEEDED Status: Active Protocol: Document 05/12/22 11:01 AB (Rec: 05/12/22 12:35 AB [email or web address]) Physical Therapy Treatment Education Education Provided Precautions,Weight Bearing Status,Safety M7 PT-IP Assessment and Plan Start: 05/12/22 12:18 Freq: NEEDED Status: Active Protocol: Document 05/12/22 11:01 AB (Rec: 05/12/22 [facility]:35 [email or web address] PT Summary Assessment and Plan Potential Rehabilitation Potential Fair Status of Condition at Evaluation Evolving Summary Impairments Pain,ROM,Strength,Balance, Coordination,Sensation,Bed Mobility,Transfers,Gait, Activity Tolerance Assessment Summary pt requiring min to mod with sit to stand and min A with ambulation using FWW and presents with decrease activity tolerance affecting independence.. Pt needs to be more independent to safety go home. pt will benefit from SNF rehab to improve overall strength and mobility. Will continue to assess progress. Pt also needs to be able to complete stairs if pt goes home. Goals Bed Mobility Goal Independent Transfer Goal Independent,Front Wheeled Walker Gait Goal Independent,Front Wheel Walker Gait Distance 250 Other Goals up/down 3 platform steps using FWW mod I Days to Meet Goals 5 Frequency of Treatment Frequency Of Treatment Twice a Day Treatment Plan Physical Therapy Treatment Plan Bed Mobility Training,Transfer Training,Gait Training, Therapeutic Exercise,Balance Retraining,Post Op Education, Discharge Planning,Hot or Cold Pack,Neuromuscular Re-ed, Coordination Retraining,Manual Therapy Precautions Lumbar Precautions Log Roll,No Twisting,Limit Bending,Lifting Restriction of 10 lbs,Gait Belt above Incisional Area Recommendations To Nursing Amount of Assist Needed 1 Person Assist Discharge Recommendations PT Discharge Recommendations Home vs SNF Transportation Needs at Discharge Private Vehicle,Wheelchair/ Cabulance
[2022-05-12 11:18] VITALS: BP 110/54; PULSE 60; RESP 18; TEMP 36.4; O2SAT 99
--- NOTE | 2022-05-12 14:25 | PT.IPTN ---
Current Diagnoses Foot drop, right foot (05/11/22) Spondylolisthesis, lumbar region (05/11/22) Spinal stenosis, lumbar region with neurogenic claudication (05/11/22) Surgery Performed Operation Date: 05/11/22 13:45 Actual Procedures p L4-5 TLIF - Chris Marcos MD Physical Therapy Treatment Note M2 PT-IP Current Condition Start: 05/12/22 12:18 Freq: NEEDED Status: Active Protocol: Document 05/12/22 11:01 AB (Rec: 05/12/22 12:35 AB [id number]) Physical Therapy Current Condition Current Condition Evaluation Date 05/12/22 Treatment Diagnosis s/p L4-5 TLIF; difficulty in walking Onset Date 05/11/22 M3 PT-IP Subjective Start: 05/12/22 12:18 Freq: NEEDED Status: Active Protocol: Document 05/12/22 14:00 KS (Rec: 05/12/22 14:39 KS [id number]) Subjective Physical Therapy Visit Type Type Treatment Note Visit Start Time 14:00 Visit Stop Time 14:25 Total Visit Minutes 25 Number of SLEEVE PRESSER OPERATOR Visits 1 Physical Therapy Visit Comments Patient Comments agreeable to do PT Therapy Pain Assessment Pain When Pain Assessed At Rest Pain Present Pain Present Pain Reported Location lower back Intensity 8 Scale Used Numeric (0 - 10) Description Aching,Sharp,Shooting Pain Behaviors Facial Grimacing,Guarding, Wincing Pain Management Techniques Distraction,Modification of Treatment,Re-positioning, Timing of Activity with Medications M4 PT-IP Mobility and Gait Start: 05/12/22 12:18 Freq: NEEDED Status: Active Protocol: Document 05/12/22 14:00 KS (Rec: 05/12/22 14:39 KS [id number]) PT-Bed Mobility Assessment Rolling Type of Rolling Log Rolling Level of Assist Standby Assistance Supine to Sit Supine to Sit Standby Assistance Sit to Supine Sit to Supine Minimal Assistance,1 Person Assistance Scooting Scooting to Edge of Bed Standby Assistance PT-Transfer Assessment Sit to and From Stand Sit to and from Stand Moderate Assistance,1 Person Assistance,Use of Upper Extremities Equipment Transfer Assistive Device Gait Belt,Front Wheeled Walker Orthotic/Prosthetic Devices or Brace: No Transfers Transfer Destination Bed Transfer Technique ambulated Transfer Ability Level of Assist Moderate Assistance,1 Person Assistance,Use of Upper Extremities Comments Mobility Comments Pt in bed upon arrival and reporting 8/10 pain but agreeable to mobilizing. Pt able to recall 2/3 precautions (no bending). SBA and cues for logroll and sup<>sit as well as scooting EOB. Pt required Mod A and cues for hand placement for sit<>stand w/ FWW. She was able to ambulate 50 ft w/ FWW CGA w/ slow dorene and decreased stride and foot clearance due to pain. Pt limited in distance by pain and weakness and requested to return to bed . Min A for LE elevation into bed. Pt completed ankle pumps and glute sets and left in bed w/ all needs in reach. Gait Assessment Gait Gait Assistance Required: Contact Guard Assist,Minimum Assistance,1 Person Assist Distance (Feet) 50 Able to Maintain Weight Bearing Status Yes During Gait Assistive Devices Assistive Device Gait Belt,Front Wheeled Walker Orthotic/Prosthetic Devices or Brace: No Gait Deviations General Gait Pattern Antalgic,Decreased Stride Length,Decreased Feet Clearance Factors Limiting Gait Function Factors Limiting Gait Function Decreased Activity Tolerance, Decreased Strength,Limited Range of Motion,Pain,Poor Balance,Poor Safety Awareness Comments Gait Comments Please refer to mobility section. Stair Climbing Assessment Comments Stair Climbing Comments Did not assess due to pain and fatigue. PT-Balance Assessment Sitting Balance and Reactions Static Sitting Balance Ability Normal Dynamic Sitting Balance Ability Good Standing Balance and Reactions Static Standing Balance Ability Fair Dynamic Standing Balance Ability Fair Device Used FWW M5 PT-IP Objective Assessments Start: 05/12/22 12:18 Freq: NEEDED Status: Active Protocol: Document 05/12/22 11:01 AB (Rec: 05/12/22 12:35 AB [id number]) Orientation Orientation/Cognition Level of Alertness Alert Orientation Name,Place,Situation Language Function Ability No Deficits Noted Safety Awareness Decreased Safety Awareness Memory Description No Deficits Noted Gross Range of Motion Lower Extremity ROM Assessment Within Functional Limits Strength Lower Extremity Strength Hip 3+/5 Knee 4-/5 Coordination Assessment Gross Coordination Gross Coordination WNL Sensation Assessment Sensation Gross Sensation Left LE Impaired Sensation Description Numbness Comments Sensation Comments LLE numbness after ambulation Muscle Tone Muscle Tone WNL Yes M6 PT-IP Treatment Start: 05/12/22 12:18 Freq: NEEDED Status: Active Protocol: Document 05/12/22 14:00 KS (Rec: 05/12/22 14:39 KS [id number]) Physical Therapy Treatment Exercises Exercises Ankle Pumps,Gluteal Sets Education Education Provided Precautions,Weight Bearing Status,Safety M7 PT-IP Assessment and Plan Start: 05/12/22 12:18 Freq: NEEDED Status: Active Protocol: Document 05/12/22 14:00 KS (Rec: 05/12/22 14:39 KS [id number]) PT Summary Assessment and Plan Potential Rehabilitation Potential Fair Summary Impairments Pain,ROM,Strength,Balance, Coordination,Sensation,Bed Mobility,Transfers,Gait, Activity Tolerance Progress Towards Goals Slow Progress due to Pain,Slow Progress due to Activity Tolerance Assessment Summary Pt requiring Mod A for sit<> stand this PM. Able to increase ambulation distance to ~50 ft but c/o pain and high level of fatigue. In order to return home, pt would need to improve independence and activity tolerance as well as complete stair training. At this time, pt will benefit from SNF to improve strength and functional mobility. Will continue to assess progress. Goals Bed Mobility Goal Independent Transfer Goal Independent,Front Wheeled Walker Gait Goal Independent,Front Wheel Walker Gait Distance 250 Other Goals up/down 3 platform steps using FWW mod I Days to Meet Goals 5 Frequency of Treatment Frequency Of Treatment Twice a Day Treatment Plan Physical Therapy Treatment Plan Bed Mobility Training,Transfer Training,Gait Training, Therapeutic Exercise,Balance Retraining,Post Op Education, Discharge Planning,Hot or Cold Pack,Neuromuscular Re-ed, Coordination Retraining,Manual Therapy Precautions Lumbar Precautions Log Roll,No Twisting,Limit Bending,Lifting Restriction of 10 lbs,Gait Belt above Incisional Area Recommendations To Nursing Amount of Assist Needed 1 Person Assist Discharge Recommendations PT Discharge Recommendations Home with 08/02 Assist Available,SNF Rehab Transportation Needs at Discharge Private Vehicle,Wheelchair/ Cabulance
[2022-05-12 15:25] VITALS: BP 119/56; PULSE 62; RESP 17; TEMP 36.6; O2SAT 98
[2022-05-12 20:00] VITALS: BP 115/59; PULSE 68; RESP 18; TEMP 36.7; O2SAT 94
[2022-05-12] MEDS: SENNOSIDES 8.6 MG TABLET 17.2 MG PO (20:09)
[2022-05-12] MEDS: atenoloL 25 MG TABLET PO (20:14)
[2022-05-13] VITALS: BP 121/54; PULSE 63; RESP 16; TEMP 37.4; O2SAT 93
[2022-05-13 04:00] VITALS: BP 122/61; PULSE 93; RESP 17; TEMP 37.1; O2SAT 94
[2022-05-13] MEDS: OXYCODONE IR 10 MG TABLET PO ×3 (04:09→12:04)
[2022-05-13] MEDS: HYDROMORPHONE 0.5 MG INJ IV (06:35)
[2022-05-13] MEDS: methocarbamoL 500 MG TABLET 750 MG PO (06:36)
--- NOTE | 2022-05-13 07:27 | P.DS_ITS ---
History of Present Illness History of Present Illness Date Patient Seen: 05/13/22 Time Patient Seen: 07:27 Chief complaint: TLIF Narrative: Patient is complaining of [id number] low back pain this morning. She worked with physical therapy yesterday. She is passing gas but has not had a bowel movement yet. The plan is to be discharged to a intermediate facility today. Overall she is feeling well. Discharge Providers Provider Date of admission: 05/11/22 10:01 Discharge Date: 05/13/22 Primary care physician: Edgar Ruiz DO Consults: 05/11/22 16:50 Consult to Occupational Therapy Evaluate & Treat Comment: Physician Instructions: Evaluate and treat Consult to Physical Therapy Evaluate & Treat Comment: Physician Instructions: Evaluate and Treat Discharge provider: Cici Khanna PA-C Summary Hospital Course Discharge Diagnosis: 1. L4-5 spondylolisthesis 2. L4-5 spinal stenosis Hospital Course: Operative Date/Time/Diagnoses Date of procedure: 05/11/22 Time of procedure: 13:00 Procedure & Clinicians Procedure: 1. L4-5 Postero-lateral and posterior interbody fusion 2. L4-5 interbody cage placement. 3. L4-5 decompressive laminectomy with bilateral facetecomies 4. L4-5 Posterior non-segmental instrumentation 5. [place] of bone marrow from iliac crest 6. Utilization of microsurgical technique and operating microscope Same procedure as scheduled: Yes Indications: Patient has been having chronic back pain and worsening lumbar radiculopathy. Patient failed multiple conservative management with worsening pain weakness and numbness in her lower extremity.? Patient has been having difficulty performing activity of daily living.? After discussing risks benefits of treatment options, patient elected proceed with surgery. Surgeon: Chris Marcos [facility] Nutritionist: Monica Sexton Click Yes if Unassisted: No Anesthesia Type: General Operative Notes Closure Type: primary Specimen(s): none sent Prosthetic devices, grafts, tissues, transplants, or devices: Globus revolve screws, Rise cage Estimated Blood Loss (mL): 50 Blood products transfused: none Status at Discharge Cognitive/behavioral status at discharge: at baseline, oriented Functional status at discharge: uses cane/walker Overall status at discharge: patient is progressing back to baseline Exam Vital Signs (past 8 hours): - 05/13/22 00:00 05/13/22 04:00 Temperature 99.3 F 98.8 F Pulse Rate 63 93 H Respiratory Rate 16 17 Blood Pressure 121/54 L 122/61 Pulse Oximetry 93 94 Oxygen Delivery Method Room Air Oxygen Flow Rate 0 Narrative Exam Narrative: Pleasant 58-year-old female, resting comfortably in bed, no acute distress. Dressing is clean, dry, intact. There is no surrounding erythema, induration, no yakelin pus. Bilateral lower extremity: Motor functions are grossly intact, sensation is grossly intact to light touch, calves are soft and nontender to palpation. [facility] Medical History Abnormal Pap smear of cervix Allergies Ankle pain Anxiety Chronic back pain Chronic low back pain Diverticular disease Fever (~1974) Fibromyalgia Foot pain Headache Hepatitis C History of atrial fibrillation (~2018) History of syphilis (~1975) History of urinary incontinence Hx of ectopic Hyperlipidemia Hypertension Measles (~1957) Neck pain Raynaud's phenomenon Recurrent sinusitis Rheumatoid arthritis Right foot drop Shoulder pain Spinal stenosis Wears glasses Surgical History Anesthesia History of cervical cerclage History of colonoscopy with polypectomy History of surgery (~2019) Hx of section Hx of tubal ligation Family History Mother History of heart disease Social History household members: none Smoking Status: Current every day smoker alcohol intake: current Discharge Assessment & Plan Assessment and Plan Assessment: -stable status post L4-5 TLIF Plan of Treatment: -mobilize with PT/OT. No bending, lifting, twisting x6 weeks -continue with multimodal pain management. Stop IV Dilaudid. -DC to SNF today, once cleared by PT in bed is available Discharge Plan Discharge Plan Patient Disposition: SNF Discharge orders & Medications Prescriptions: New acetaminophen 500 mg capsule 500 mg PO Q4H PRN (Reason: fever or pain) Qty: 90 0RF docusate sodium 100 mg Capsule 100 mg PO BID PRN (Reason: Constipation from narcotic pain meds) Qty: 20 0RF hydroxyzine pamoate 25 mg Capsule 25 mg PO Q4HR PRN (Reason: Muscle spasm/pain/nausea) Qty: 30 0RF oxycodone 10 mg tablet 10 mg PO Q4H PRN (Reason: Moderate to severe postop pain) Qty: 42 0RF Continued rosuvastatin 5 mg Tablet 5 mg PO QWEEK Label Comments: Takes on Sundays methocarbamol 500 mg tablet 750 mg PO TID PRN (Reason: muscle strain) atenolol 25 mg tablet See Rx Instructions .ROUTE .COMPLEX Qty: 90 1RF Dose Instruction: TAKE ONE TABLET BY MOUTH EVERY DAY Label Comments: Pt takes at bedtime Rx Instructions: TAKE ONE TABLET BY MOUTH EVERY DAY Discontinued aspirin 500 mg tablet,delayed release (/EC) 1,000 mg PO QD-BID PRN (Reason: Pain) Follow up/Referrals: Chris Marcos MD [Physician] - As previously scheduled (Follow up with Dr Marcos on 05/26/2022 @ 1:20 pm at [facility] in [place].) Edgar Ruiz DO [Primary Care Provider] - Diet/Activity/Treatments Diet: Diet as Tolerated Other treatments: Dressing/Wound care: -Keep dressing in place until postoperative follow-up office visit. -Okay to shower. Keep wound out of direct water stream. Can use PressNSeal plastic wrap to protect from shower stream. No soaking or submerging until all the scabs fall off (approximately 6 weeks). -Please call the office if dressing becomes wet, soiled, or saturated. Activities: -Limit bending, lifting, twisting x6 weeks. No deep bending (more than 90 degrees) or twisting at the waist. No lifting > 20 pounds. -Walk frequently. -Weight-bearing as tolerated. Use front wheeled walker, and progress to cane when safe. -Continue with home exercises as directed by your physical therapist. -Ice your incision as needed for pain/inflammation/swelling. Protect your skin with a folded pillowcase. -Incentive Spirometer (breathing device from hospital): 5-10xs every hour while awake for the first 1-2 weeks. Follow-up: -Follow-up with your surgeon or PA in the office in 10-14 days after surgery. -Follow-up with your surgeon 6 weeks postoperatively. Call the office if you have chest pain, shortness of breath, significant swelling that will not resolve with elevating, fever over 101?, significantly worsening pain, or are concerned you might need to go to the Emergency Room. [facility]: [phone] Skin/Wound/Dressing Care Report to your healthcare provider any signs of infection, such as:: chills, fever, night sweats, unusual drainage and unusual redness Special Rehabilitation Services Reason for rehabilitation: Post-operative therapy Rehab type: Physical therapy and Occupational therapy Visit Report/Discharge Packet Instructions: DI for Transforaminal Lumbar Interbody Fusion Stand Alone Forms: Surgery Discharge Discharge Data Primary Care Provider: Edgar Ruiz VTE Deep Vein Thrombosis/Pulmonary Embolism Present on Admission: No
[2022-05-13 07:57] VITALS: BP 120/58; PULSE 80; RESP 15; TEMP 36.6; O2SAT 97
[2022-05-13] MEDS: MAGNESIUM HYDROXIDE 30 ML UDC PO (08:32)
[2022-05-13] MEDS: DOCUSATE 100 MG CAPSULE PO (08:32)
[2022-05-13] MEDS: ACETAMINOPHEN 325 MG TABLET 650 MG PO (08:33)
[2022-05-13 09:18] LABS: COVID19 -Nasal RAPID Negative (Negative)
--- NOTE | 2022-05-13 09:19 | CM.DPC ---
Addendum entered by Cady Mathis R.N. 05/13/22 11:22: Spoke to Selene at [facility], she has received auth. She mentioned that the insurance company was stating that they did not have P.T, notes, December indicated that it was in the packet sent to them, and she resent them. Confirmed that [facility] will pick patient up at 1230. Updated white board at main nurses station, left a note for patient's nurse, Robson, with name and number for report. Updated patient. Confirmed that [place] [address] She did not think that she would need half-way, but her friends were concerned, especially since she lives alone. December has already received all of the paperwork, orders, PASSR, DC Summary, COVID results. Original Note: DCP Cont: Two different individuals called back from [facility]. Both were difficult to understand, one individual had indicated that she was working with patient, a piano case maker, on getting patient to what was called [facility], now, [facility]. Asked her if she could give auth, or if she would get an auth for patient. Stated, this would have to go through membership services. Another individual called from the same insurance company, asked for Cornelia, had to explain that Cornelia was not here today, but gave the name of the [place] Immigration Case Worker. Asked if he could give an auth, but he just was wanting the address of [facility]. Spoke to December, at [facility]. She stated that she has a pending auth number, needs to go through [facility]. She hopes to have the auth by today. Cici Khanna, PAC, has already placed discharge orders, did add a COVID swab for patient, and completed PASSR. December indicated that it does not usually take long to get the auth. P: Patient has discharge orders, Glory is assisting in getting orders faxed to [facility], but this is pending auth. Med sheets signed, DC Summary is completed. Let Cici Khanna know that she will be updated if auth does not occur today. Cady Mathis RN/Engine Head Repairer
[2022-05-13 11:55] VITALS: BP 111/55; PULSE 59; RESP 14; TEMP 36.6; O2SAT 97
--- NOTE | 2022-05-13 12:03 | PT.IPTN ---
Current Diagnoses Foot drop, right foot (05/11/22) Spondylolisthesis, lumbar region (05/11/22) Spinal stenosis, lumbar region with neurogenic claudication (05/11/22) Surgery Performed Operation Date: 05/11/22 13:45 Actual Procedures p L4-5 TLIF - Chris Marcos MD Physical Therapy Treatment Note M2 PT-IP Current Condition Start: 05/12/22 12:18 Freq: NEEDED Status: Active Protocol: Document 05/12/22 11:01 AB (Rec: 05/12/22 12:35 AB [id number]) Physical Therapy Current Condition Current Condition Evaluation Date 05/12/22 Treatment Diagnosis s/p L4-5 TLIF; difficulty in walking Onset Date 05/11/22 M3 PT-IP Subjective Start: 05/12/22 12:18 Freq: NEEDED Status: Active Protocol: Document 05/13/22 11:40 KS (Rec: 05/13/22 13:03 KS [id number]) Subjective Physical Therapy Visit Type Type Treatment Note Visit Start Time 11:40 Visit Stop Time 12:03 Total Visit Minutes 23 Number of MAINTENANCE AND CUSTODIAN SUPERVISOR Visits 2 Physical Therapy Visit Comments Patient Comments agreeable to do PT Therapy Pain Assessment Pain When Pain Assessed During Mobility Pain Present Pain Present Pain Reported Location lower back Intensity 7 Scale Used Numeric (0 - 10) Pain Behaviors Facial Grimacing,Guarding, Wincing Pain Management Techniques Distraction,Modification of Treatment,Re-positioning, Timing of Activity with Medications M4 PT-IP Mobility and Gait Start: 05/12/22 12:18 Freq: NEEDED Status: Active Protocol: Document 05/13/22 11:40 KS (Rec: 05/13/22 13:03 KS [id number]) PT-Bed Mobility Assessment Rolling Type of Rolling Log Rolling Level of Assist Standby Assistance Supine to Sit Supine to Sit Standby Assistance Scooting Scooting to Edge of Bed Standby Assistance PT-Transfer Assessment Sit to and From Stand Sit to and from Stand Minimal Assistance,1 Person Assistance,Use of Upper Extremities Equipment Transfer Assistive Device Gait Belt,Front Wheeled Walker Orthotic/Prosthetic Devices or Brace: No Transfers Transfer Destination Chair,Toilet Transfer Technique ambulated Transfer Ability Level of Assist Minimal Assistance,1 Person Assistance,Use of Upper Extremities Comments Mobility Comments Pt in bed upon arrival and agreeable to working w/ therapy. Completed 2x10 bilateral ankle pumps, quad sets, and glute sets w/ cues. Pt SBA for logroll and sidelying<>sit. Min A and cues for sit<>stand w/ FWW. Pt ambulated ~20 ft w/ FWW to bathroom, voided and needed assist w/ pericare. She then ambulate ~10 ft to chair. Pt left in chair w/ all needs in reach. Gait Assessment Gait Gait Assistance Required: Contact Guard Assist,1 Person Assist Distance (Feet) 20 Able to Maintain Weight Bearing Status Yes During Gait Assistive Devices Assistive Device Gait Belt,Front Wheeled Walker Orthotic/Prosthetic Devices or Brace: No Gait Deviations General Gait Pattern Antalgic,Decreased Stride Length,Decreased Feet Clearance Factors Limiting Gait Function Factors Limiting Gait Function Decreased Activity Tolerance, Decreased Strength,Limited Range of Motion,Pain,Poor Balance,Poor Safety Awareness Comments Gait Comments Please refer to mobility section. Stair Climbing Assessment Comments Stair Climbing Comments Did not assess. PT-Balance Assessment Sitting Balance and Reactions Static Sitting Balance Ability Normal Dynamic Sitting Balance Ability Good Standing Balance and Reactions Static Standing Balance Ability Fair Dynamic Standing Balance Ability Fair Device Used FWW M5 PT-IP Objective Assessments Start: 05/12/22 12:18 Freq: NEEDED Status: Active Protocol: Document 05/12/22 11:01 AB (Rec: 05/12/22 12:35 AB [id number]) Orientation Orientation/Cognition Level of Alertness Alert Orientation Name,Place,Situation Language Function Ability No Deficits Noted Safety Awareness Decreased Safety Awareness Memory Description No Deficits Noted Gross Range of Motion Lower Extremity ROM Assessment Within Functional Limits Strength Lower Extremity Strength Hip 3+/5 Knee 4-/5 Coordination Assessment Gross Coordination Gross Coordination WNL Sensation Assessment Sensation Gross Sensation Left LE Impaired Sensation Description Numbness Comments Sensation Comments LLE numbness after ambulation Muscle Tone Muscle Tone WNL Yes M6 PT-IP Treatment Start: 05/12/22 12:18 Freq: NEEDED Status: Active Protocol: Document 05/13/22 11:40 KS (Rec: 05/13/22 13:03 KS [id number]) Physical Therapy Treatment Exercises Exercises Ankle Pumps,Gluteal Sets,Quad Sets Education Education Provided Precautions,Weight Bearing Status,Safety M7 PT-IP Assessment and Plan Start: 05/12/22 12:18 Freq: NEEDED Status: Active Protocol: Document 05/13/22 11:40 KS (Rec: 05/13/22 13:03 KS [id number]) PT Summary Assessment and Plan Potential Rehabilitation Potential Good Summary Impairments Pain,ROM,Strength,Balance, Coordination,Sensation,Bed Mobility,Transfers,Gait, Activity Tolerance Progress Towards Goals Slow Progress due to Pain,Slow Progress due to Activity Tolerance Assessment Summary Pt still limited by pain and weakness, but slowly improving . SBA for bed mobility, Min A for sit<>Stand w/ FWW. Low tolerance for ambulation due to pain. Pt rquires assistance w/ pericare at this time. She will benefit from SNF to improve functional mobility independence. Goals Bed Mobility Goal Independent Transfer Goal Independent,Front Wheeled Walker Gait Goal Independent,Front Wheel Walker Gait Distance 250 Other Goals up/down 3 platform steps using FWW mod I Days to Meet Goals 5 Frequency of Treatment Frequency Of Treatment Twice a Day Treatment Plan Physical Therapy Treatment Plan Bed Mobility Training,Transfer Training,Gait Training, Therapeutic Exercise,Balance Retraining,Post Op Education, Discharge Planning,Hot or Cold Pack,Neuromuscular Re-ed, Coordination Retraining,Manual Therapy Precautions Lumbar Precautions Log Roll,No Twisting,Limit Bending,Lifting Restriction of 10 lbs,Gait Belt above Incisional Area Recommendations To Nursing Amount of Assist Needed 1 Person Assist Discharge Recommendations PT Discharge Recommendations Home with 08/02 Assist Available,SNF Rehab Transportation Needs at Discharge Private Vehicle,Wheelchair/ Cabulance
--- NOTE | 2022-05-13 13:21 | OT.IP.TRT ---
Current Diagnoses Foot drop, right foot (05/11/22) Spondylolisthesis, lumbar region (05/11/22) Spinal stenosis, lumbar region with neurogenic claudication (05/11/22) Surgery Performed Operation Date: 05/11/22 13:45 Actual Procedures p L4-5 TLIF - Chris Marcos MD Occupational Therapy Treatment Note M2 OT-IP Current Condition Start: 05/12/22 11:41 Freq: Status: Discharge Protocol: Document 05/12/22 11:41 [facility] (Rec: 05/12/22 12:30 [facility] [id number]) Occupational Therapy Current Condition Current Condition Evaluation Date 05/12/22 Treatment Diagnosis S/p L4-5 TLIF Diagnosis Onset Date 05/11/22 Post Operative Precautions Lumbar Precautions Log Roll,No Twisting,Limit Bending,Lifting Restriction of 10 lbs,Gait Belt above Incisional Area M3 OT- IP Subjective and Pain Start: 05/12/22 11:41 Freq: Status: Discharge Protocol: Document 05/13/22 12:11 [facility] (Rec: 05/13/22 13:21 [facility] [id number]) OT- Subjective Occupational Therapy Visit Type Type Treatment Note Visit Start Time 12:11 Visit Stop Time 12:20 Total Visit Minutes 9 Occupational Therapy Visit Comments Patient Comments Pt trying to get her items ready as going to skilled rehab today. Patient/Caregiver Goals To be able to care for herself again. OT Pain Assessment Pain When Pain Assessed At Rest Pain Present Pain Present Denied Pain M6 OT- IP Functional Cognition Start: 05/12/22 11:41 Freq: Status: Discharge Protocol: Document 05/13/22 12:11 [facility] (Rec: 05/13/22 13:21 [facility] [id number]) Cognitive Factors Limiting Selfcare Function Cognitive Ability Level of Alertness Alert Patient Orientation Name,Place,Situation Attention Span Ability Capable of Focused Attention, Capable of Sustained Attention Ability to Follow Commands Able to Follow One Step Commands Cognitive Comments Cognitive Assessment Comments Pt able to follow command better and able identify what to do or not don based on visual demonstration of ADl and mobility needs. Pt realizes that she needs to try to slow down and take her time. Pt able to recall all her back precautions. M9 OT- IP Assessment and Plan Start: 05/12/22 11:41 Freq: Status: Discharge Protocol: Document 05/13/22 12:11 [facility] (Rec: 05/13/22 13:21 [facility] [id number]) OT Summary Assessment and Plan Potential Rehabilitation Potential Good Analytic Complexity at Evaluation Low Summary OT Impairments Pain,Balance,Functional Mobility,Dressing,Bathing, Shower Transfers Progress Towards Goals Progressing Toward Goals Assessment Summary Pt going to skilled rehab today and motivated to get better so able to go back home . Goals Grooming Goal Independent Dressing Goal Independent Toileting Goal Independent Bathing Goal Independent Toilet Transfer Goal Independent Shower Transfer Goal Independent OT-Other Goals Goals now based on prior level when pt able to use the outhouse and outdoor shower on her own. Days to Meet Goals 20 Frequency of Treatment Frequency Of Treatment Once a Day Treatment Plan OT Treatment Plan ADL Training,Functional Mobility,Patient/Family Education,Discharge Planning Discharge Recommendations OT Discharge Recommendations SNF Rehab Home Equipment Needs shower chair Transportation Needs at Discharge Wheelchair/Cabulance
== END 2022-05-13 12:40 | DRG 455 ==
PROVIDERS: Physician Assistant; Admitting Provider Orthopaedic Surgery Orthopaedic Surgery of the Spine; PCP Family Medicine; Referring Provider Orthopaedic Surgery Orthopaedic Surgery of the Spine; Visit Provider Orthopaedic Surgery Orthopaedic Surgery of the Spine
PROC: 0SG00AJ Fusion of Lumbar Vertebral Joint with Interbody Fusion Device, Posterior Approach, Anterior Column, Open Approach (ICD-10-PCS; principal; 2022-05-11 13:45)
DX: M43.16 Spondylolisthesis, lumbar region (principal); M48.061 Spinal stenosis, lumbar region without neurogenic claudication; I10 Essential (primary) hypertension; E78.5 Hyperlipidemia, unspecified; F17.210 Nicotine dependence, cigarettes, uncomplicated; Z20.822 Contact with and (suspected) exposure to COVID-19
CPT/HCPCS: 36415; 72100; 76000; 80048; 85025; 87635; 97110; 97116; 97162; 97165; 97530; 97535; C9803; C1713; C9290; J0131; J0171; J0330; J0690; J1100; J1170; J2405; J3010

== ENCOUNTER → 2022-05-11 11:40 | Outpatient (CLI) | payer MEDICARE, MEDICAID, SELFPAY ==
[2022-05-11 12:09] LABS: Add Manual Diff / Slide Review NO; Basophils Absolute Auto 0 /uL (0-100); Basophils Percent Auto 0.6 % (0-2); Eosinophils Absolute Auto 100 /uL (0-450); Eosinophils Percent Auto 0.8 % (2-4); Hematocrit 37.1 % (36-46); Hemoglobin 12.8 g/dL (12.0-16.0); Lymphocytes Absolute Auto 1500 /uL (1100-4500); Lymphocytes Percent Auto 22.1 % (25-40); Mean Corpuscular HGB Conc 34.5 % (30-36); Mean Corpuscular Hemoglobin 31.9 PG (26-34); Mean Corpuscular Volume 92.6 fL (80-100); Monocytes Absolute Auto 700 /uL (0-900); Monocytes Percent Auto 9.9 % (3-14); Neutrophils Absolute Auto 4600 /uL (1500-7000); Neutrophils Percent Auto 66.6 % (50-75); Platelet Count 319 X10^3/uL (150-400); Red Cell Distribution Width 13.7 % (11.6-14.8); White Blood Cell Count 6.9 X10^3/uL (4.5-11.0)
[2022-05-11 12:25] LABS: BUN Creatinine Ratio 20.3 (6-22); Blood Urea Nitrogen 12 mg/dL (7-17); Calcium 9.1 mg/dL (8.4-10.2); Carbon Dioxide 30 mmol/L (22-32); Chloride 102 mmol/L (98-107); Estimated Glomerular Filt Rate > 60 mL/min (>60); Glucose 107 mg/dL (80-110); HEMOLYSIS < 15 (0-50); Potassium 3.9 mmol/L (3.4-5.1); Sodium 140 mmol/L (137-145)
== END ==
PROVIDERS: PCP Family Medicine; Referring Provider Orthopaedic Surgery Orthopaedic Surgery of the Spine; Visit Provider Orthopaedic Surgery Orthopaedic Surgery of the Spine
DX: Z01.812 Encounter for preprocedural laboratory examination (principal); Z11.59 Encounter for screening for other viral diseases
CPT/HCPCS: 36415; 80048; 85025

== ENCOUNTER → 2022-11-02 11:02 | Outpatient (CLI) | payer MEDICARE, MEDICAID, SELFPAY ==
[2022-05-11 17:28] VITALS: BMI 19.3
[2022-11-02 19:32] LABS: Add Manual Diff / Slide Review NO; Basophils Absolute Auto 0 /uL (0-100); Basophils Percent Auto 0.4 % (0-2); Eosinophils Absolute Auto 100 /uL (0-450); Eosinophils Percent Auto 0.7 % (2-4); Hematocrit 37.6 % (36-46); Hemoglobin 12.5 g/dL (12.0-16.0); Lymphocytes Absolute Auto 2000 /uL (1100-4500); Lymphocytes Percent Auto 21.1 % (25-40); Mean Corpuscular HGB Conc 33.2 % (30-36); Mean Corpuscular Hemoglobin 30.4 PG (26-34); Mean Corpuscular Volume 91.3 fL (80-100); Monocytes Absolute Auto 900 /uL (0-900); Monocytes Percent Auto 9.2 % (3-14); Neutrophils Absolute Auto 6500 /uL (1500-7000); Neutrophils Percent Auto 68.6 % (50-75); Platelet Count 310 X10^3/uL (150-400); Red Blood Cell Count 4.12 X10^6/uL (4.0-5.2); Red Cell Distribution Width 13.4 % (11.6-14.8); White Blood Cell Count 9.4 X10^3/uL (4.5-11.0)
[2022-11-02 19:43] LABS: Alanine Aminotransferase 14 IU/L (<35); Albumin 4.1 g/dL (3.5-5.0); Albumin Globulin Ratio 1.2 (1.0-2.8); Alkaline Phosphatase 78 U/L (38-126); Aspartate Aminotransferase 23 IU/L (14-36); BUN Creatinine Ratio 25.9 (6-22); Bilirubin Total 0.7 mg/dL (0.2-1.3); Bilirubin Unconjugated 0.4 mg/dL (0.0-1.1); Blood Urea Nitrogen 14 mg/dL (7-17); Calcium 9.3 mg/dL (8.4-10.2); Carbon Dioxide 31 mmol/L (22-32); Chloride 103 mmol/L (98-107); Cholesterol 145 mg/dL (140-199); Estimated Glomerular Filt Rate > 60 mL/min (>60); Globulin 3.4 g/dL (1.7-4.1); Glucose 97 mg/dL (80-110); HDL Cholesterol 72 mg/dL (40-60); HEMOLYSIS < 15 (0-50); LDL Cholesterol Calculated 55 mg/dL (<100); Potassium 3.9 mmol/L (3.4-5.1); Sodium 140 mmol/L (137-145); Total Protein 7.5 g/dL (6.3-8.2); Triglycerides 92 mg/dL (35-150)
[2022-11-02 20:29] LABS: Vitamin B12 305 pg/mL (239-931)
== END ==
PROVIDERS: PCP Family Medicine; Visit Provider Family Medicine
DX: E78.2 Mixed hyperlipidemia (principal); F17.200 Nicotine dependence, unspecified, uncomplicated; G89.29 Other chronic pain; I10 Essential (primary) hypertension; I65.29 Occlusion and stenosis of unspecified carotid artery; M54.59 Other low back pain; R79.89 Other specified abnormal findings of blood chemistry
CPT/HCPCS: 80053; 80061; 80076; 82607; 85025

== ENCOUNTER → 2022-12-29 10:43 | Outpatient (CLI) | payer MEDICARE, MEDICAID, SELFPAY ==
[2022-05-11 17:28] VITALS: BMI 19.3
--- NOTE | 2022-12-29 10:46 | DI.CT.S_ITS ---
PROCEDURE: CT ANGIO ABD AORTA RUNOFF INDICATIONS: Peripheral vascular disease, unspecified TECHNIQUE: After the administration of intravenous contrast, 2.5 mm sections acquired from T12 to the feet, with optional delayed image acquisition from the knees to the feet. 3-dimensional maximum intensity projection (MIP) coronal and sagittal reformats, and/or 3-dimensional volume rendering reformatting was then performed. For radiation dose reduction, the following was used: automated exposure control. COMPARISON: None. FINDINGS: Image quality: Excellent. Extravascular tissues: Lung bases are clear. Heart size is normal. Liver is normal in size and enhancement. Gallbladder is unremarkable without calcified stones . Biliary system is non dilated. Pancreas enhances normally. Spleen is normal in size and enhancement. No adrenal nodules. Kidneys are normal in size and enhancement, without hydronephrosis. Extensive sigmoid diverticulosis without evidence of diverticulitis. No free fluid or air. No retroperitoneal or mesenteric adenopathy. No ventral hernias. Bladder wall thickness is normal. No inguinal hernias or adenopathy. No suspicious bony lesions. No vertebral body compression fractures. Remote L4-L5 posterior decompression and posterior lateral fusion. Abdominal aorta: Atherosclerotic plaque. No stenosis. 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 SMA is patent. FLORES is grossly patent. Single right renal artery is patent. There are 2 left renal arteries which are grossly patent. Right lower extremity: There is at least a moderate proximal common iliac artery stenosis from its origin measuring approximately 2.4 cm in length. There is diffuse external iliac stenotic disease with a focal high-grade stenosis or short segment occlusion of the proximal external iliac. The external iliac is a diminutive vessel below this lesion. There is [id number] diffuse common femoral stenotic disease. There is moderate proximal origin stenosis of the SFA. There is a severe upper thigh stenosis of the SFA. There is straight line flow in the SFA which is a small-caliber vessel. The popliteal is patent. There is three-vessel runoff. Left lower extremity: There is severe proximal left common iliac stenotic disease with a relatively long segment high-grade stenosis of the mid and distal common iliac. There is diffuse external iliac disease. There is moderate common femoral stenotic disease. The SFA is occluded at its origin. There is reconstitution of the above the knee popliteal. The popliteal is patent but diminutive. There is three-vessel runoff. IMPRESSION: 1. Right lower extremity runoff significant for a proximal common iliac stenosis which is at least moderate, diffuse external iliac stenotic disease with a high-grade stenosis or short segment occlusion, severe proximal SFA stenosis, and three-vessel runoff. 2. Left lower extremity runoff significant for severe proximal common iliac artery stenotic disease with a relatively long segment of high-grade stenosis of the mid and distal common iliac, with diffuse external iliac stenotic disease. There is moderate common femoral stenotic disease. The SFA is occluded in its entirety. There is reconstitution of the above the knee popliteal. There is three-vessel runoff. Dictated by: Sukumar Martinez M.D. on 12/29/2022 at 21:26 Approved by: Sukumar Martinez M.D. on 12/29/2022 at 21:53
[2022-12-29 11:25] LABS: BUN Creatinine Ratio 23.3 (6-22); Blood Urea Nitrogen 14 mg/dL (7-17); Calcium 8.8 mg/dL (8.4-10.2); Carbon Dioxide 31 mmol/L (22-32); Chloride 105 mmol/L (98-107); Estimated Glomerular Filt Rate > 60 mL/min (>60); Glucose 96 mg/dL (80-110); HEMOLYSIS < 15 (0-50); Potassium 4.3 mmol/L (3.4-5.1); Sodium 141 mmol/L (137-145)
== END ==
PROVIDERS: PCP Family Medicine; Referring Provider Family Medicine; Visit Provider Family Medicine
DX: I73.9 Peripheral vascular disease, unspecified (principal); I65.29 Occlusion and stenosis of unspecified carotid artery; I10 Essential (primary) hypertension; R79.89 Other specified abnormal findings of blood chemistry; K57.30 Diverticulosis of large intestine without perforation or abscess without bleeding; Z98.1 Arthrodesis status
CPT/HCPCS: 36415; 75635; 80048; Q9967

== ENCOUNTER → 2024-04-11 11:17 | Outpatient (CLI) | payer MEDICARE, MEDICAID, SELFPAY ==
[2022-05-11 17:28] VITALS: BMI 19.3
--- NOTE | 2024-04-11 11:18 | DI.MG.S_ITS ---
BILATERAL DIGITAL SCREENING MAMMOGRAM 3D/2D WITH CAD: 04/11/2024 CLINICAL: Routine screening. Baseline exam. No prior exams were available for comparison. There are scattered areas of fibroglandular density (category b / 25%-50% glandular tissue). Current study was also evaluated with a Computer Aided Detection (CAD) system. No significant masses, calcifications, or other findings are seen in either breast. IMPRESSION: NEGATIVE There is no mammographic evidence of malignancy. A 1 year screening mammogram is recommended. Based on the Tyrer Cuzick model (a risk assessment model) the patient's lifetime risk is 4.6% and her 10 year risk is 2.9%. According to the ACR, ACS, and NCCN guidelines, an annual breast MRI exam along with mammogram is recommended if the patient's lifetime risk is 20% or greater. This exam was interpreted at Station ID: [id number]. NOTE: For mammograms, a report in lay terms will be sent to the patient. Approximately 15% of breast malignancies will not be visualized mammographically. In the management of a palpable breast mass, a negative mammogram must not discourage biopsy of a clinically suspicious lesion. Electronically Signed By: Ajay hebert/nhan:04/11/2024 15:36:22 letter sent: Normal Exam ACR BI-RADS Category 1: Negative
--- NOTE | 2024-04-11 11:18 | DI.CT.S_ITS ---
PROCEDURE: CT LUNG LOW DOSE SCREENING INDICATIONS: 60 pack year history TECHNIQUE: Noncontrast 2.0-2.5 mm thick sections acquired from the pulmonary apices to the posterior costophrenic angles. 7 mm thick axial MIP, and 5 mm coronal and sagittal reformats were then acquired. For radiation dose reduction, the following was used: automated exposure control, adjustment of mA and/or kV according to patient size. COMPARISON: None. FINDINGS: Image quality: Diagnostic. Lower Neck: No enlarged lymph nodes. Thyroid: No thyroid nodules which require sonographic follow up, per consensus guidelines. Axillae: No enlarged lymph nodes. Chest Wall: Unremarkable. Bones: Old healed left lower rib fracture. Lungs and Pleura: No pneumothorax or pleural effusions. Mild centrilobular emphysema. No acute consolidation. -5 mm solid nodule is seen in the left lower lobe (3/222). Numerous small bilateral pulmonary micro nodules measuring 4 mm or less. A benign calcified granuloma is seen in the lateral left lower lobe. Heart: Heart size is normal. No pericardial effusion. [id number] coronary artery calcifications. Thoracic Vessels: The aorta and pulmonary arteries demonstrate normal size. Mediastinum and Nidia: No enlarged lymph nodes. Esophagus: No wall thickening. No hiatal hernia. Upper Abdomen: Visualized upper abdomen solid organs and bowel loops appear normal. IMPRESSION: No suspicious pulmonary nodules. LUNG-RADS 2; continued annual screening, if eligible. Clinically Significant Non-pulmonary Findings: None. Approved by: Crispin Palmer M.D. on 04/12/2024 at 13:44
== END ==
PROVIDERS: PCP Family Medicine; Referring Provider Family Medicine; Visit Provider Family Medicine
DX: F17.210 Nicotine dependence, cigarettes, uncomplicated (principal); Z12.31 Encounter for screening mammogram for malignant neoplasm of breast; Z12.2 Encounter for screening for malignant neoplasm of respiratory organs; I25.10 Atherosclerotic heart disease of native coronary artery without angina pectoris; J43.2 Centrilobular emphysema
CPT/HCPCS: 71271; 77063; 77067

== ENCOUNTER → 2024-09-25 09:02 | Outpatient (CLI) | payer MEDICARE, MEDICAID, SELFPAY ==
[2022-05-11 17:28] VITALS: BMI 19.3
[2024-09-25 19:15] LABS: Add Manual Diff / Slide Review NO; Basophils Absolute Auto 100 /uL (0-100); Basophils Percent Auto 0.9 % (0-2); Eosinophils Absolute Auto 100 /uL (0-450); Eosinophils Percent Auto 1.5 % (2-4); Hematocrit 34.1 % (36-46); Hemoglobin 11.2 g/dL (12.0-16.0); Lymphocytes Absolute Auto 1400 /uL (1100-4500); Lymphocytes Percent Auto 20.4 % (25-40); Mean Corpuscular HGB Conc 32.8 % (30-36); Mean Corpuscular Hemoglobin 29.5 PG (26-34); Mean Corpuscular Volume 89.9 fL (80-100); Monocytes Absolute Auto 700 /uL (0-900); Monocytes Percent Auto 9.3 % (3-14); Neutrophils Absolute Auto 4700 /uL (1500-7000); Neutrophils Percent Auto 67.9 % (50-75); Platelet Count 302 X10^3/uL (150-400); Red Blood Cell Count 3.79 X10^6/uL (4.0-5.2); Red Cell Distribution Width 15.9 % (11.6-14.8)
[2024-09-25 19:26] LABS: Alanine Aminotransferase 15 IU/L (<35); Albumin Globulin Ratio 1.4 (1.0-2.8); Alkaline Phosphatase 90 U/L (38-126); Aspartate Aminotransferase 32 IU/L (14-36); BUN Creatinine Ratio 23.6 (6-22); Bilirubin Total 0.2 mg/dL (0.2-1.3); Blood Urea Nitrogen 13 mg/dL (7-17); Calcium 9.5 mg/dL (8.4-10.2); Carbon Dioxide 29 mmol/L (22-32); Chloride 105 mmol/L (98-107); Cholesterol 146 mg/dL (140-199); Estimated Glomerular Filt Rate > 60 mL/min (>60); Globulin 2.8 g/dL (1.7-4.1); Glucose 106 mg/dL (80-110); HDL Cholesterol 69 mg/dL (40-60); HEMOLYSIS < 15 (0-50); LDL Cholesterol Calculated 56 mg/dL (<100); Potassium 4.4 mmol/L (3.4-5.1); Sodium 142 mmol/L (137-145); Total Protein 6.8 g/dL (6.3-8.2); Triglycerides 105 mg/dL (35-150)
[2024-09-25 19:52] LABS: TSH w/ Reflex to FT4 4.52 uIU/mL (0.47-4.68)
== END ==
PROVIDERS: PCP Family Medicine; Visit Provider Family Medicine
DX: F10.90 Alcohol use, unspecified, uncomplicated (principal); I73.9 Peripheral vascular disease, unspecified; J43.8 Other emphysema; R79.89 Other specified abnormal findings of blood chemistry; I10 Essential (primary) hypertension; E78.2 Mixed hyperlipidemia; I48.0 Paroxysmal atrial fibrillation
CPT/HCPCS: 80053; 80061; 84443; 85025

== ENCOUNTER → 2025-07-18 11:57 | Outpatient (CLI) | payer OTHER, MEDICAID, SELFPAY ==
[2022-05-11 17:28] VITALS: BMI 19.3
[2025-07-18 16:27] LABS: HEMOLYSIS < 15 (0-50); Iron 70 ug/dL (37-170)
[2025-07-18 16:29] LABS: Add Manual Diff / Slide Review NO; Hematocrit 35.0 % (36-46); Hemoglobin 11.8 g/dL (12.0-16.0); Lymphocytes Absolute Auto 1300 /uL (1100-4500); Mean Corpuscular HGB Conc 33.8 % (30-36); Mean Corpuscular Hemoglobin 30.8 PG (26-34); Mean Corpuscular Volume 91.1 fL (80-100); Platelet Count 333 X10^3/uL (150-400)
[2025-07-18 16:39] LABS: Percent Iron Saturation 17 % (15-50); Total Iron Binding Capacity 418 ug/dL (265-497); Transferrin 347 mg/dL (206-381)
[2025-07-18 17:17] LABS: Vitamin B12 259 pg/mL (239-931)
== END ==
PROVIDERS: PCP Family Medicine; Visit Provider Family Medicine
DX: D64.9 Anemia, unspecified (principal)
CPT/HCPCS: 82607; 83540; 83550; 85025